=== PATIENT | female | born 1975 | race Caucasian/White ===

== ENCOUNTER 2018-06-02 05:55 | Emergency (ER) | payer OTHER ==
[2018-06-02 07:00] VITALS: BP 104/72; PULSE 85; TEMP 98.5; BMI 22.4
--- NOTE | 2018-06-02 07:54 | PDOC ---
History of Present Illness - General History Source: Patient - History of Present Illness Occurred: reports: other Severity: reports: moderate Pain Location: reports: back <Shila Velásquez - Last Filed: 06/02/18 08:12> <Brenda Monge Kristan - Last Filed: 06/02/18 14:03> - General Chief Complaint: Back Pain Stated Complaint: LOWER BACK PAIN Time Seen by Provider: 06/02/18 07:43 Past History - Past Medical History COPD: No GI Disorders: Yes (GERD) - Suicide/Smoking/Psychosocial Hx Smoking History: Never smoked Hx Alcohol Use: No Drug/Substance Use Hx: No <Shila Velásquez - Last Filed: 06/02/18 08:12> <Brenda Monge - Last Filed: 06/02/18 14:03> - Past Medical History Allergies/Adverse Reactions: Allergies Allergy/AdvReac Type Severity Reaction Status Date / Time No Known Allergies Allergy Verified 05/05/18 07:11 Home Medications: Ambulatory Orders Ranitidine [Zantac -] 150 mg PO DAILY 06/02/18 Review of Systems - Review of Systems Constitutional: No: Fever Respiratory: No: Cough, Shortness of Breath Cardiac (ROS): No: Chest Pain, Palpitations Musculoskeletal: Yes: Back Pain <Shila Velásquez Last Filed: 06/02/18 08:12> *Physical Exam - Vital Signs Last Vital Signs Temp Pulse Resp BP Pulse Ox 98.5 F 85 104/72 99 06/02/18 06:22 06/02/18 06:22 06/02/18 06:22 06/02/18 06:22 - Physical Exam General Appearance: Yes: Appropriately Dressed. No: Apparent Distress HEENT: positive: Normal Voice Neck: positive: Supple Respiratory/Chest: positive: Lungs Clear, Normal Breath Sounds. negative: Respiratory Distress Cardiovascular: positive: Regular Rate, S1, S2 Musculoskeletal: negative: CVA Tenderness, Vertebral Tenderness Extremity: positive: Normal Inspection Integumentary: positive: Dry, Warm Neurologic: positive: Fully Oriented, Alert, Normal Mood/Affect <Shila Velásquez Last Filed: 06/02/18 08:12> - Vital Signs Last Vital Signs Temp Pulse Resp BP Pulse Ox 98.5 F 85 104/72 99 06/02/18 06:22 06/02/18 06:22 06/02/18 06:22 06/02/18 06:22 <Brenda Monge - Last Filed: 06/02/18 14:03> ED Treatment Course - Medications Given in the ED: ED Medications Discontinued Medications Generic Name Dose Route Start Last Admin Trade Name Derrick PRN Reason Stop Dose Admin Acetaminophen 650 mg 06/02/18 07:51 06/02/18 08:15 Tylenol - PO 06/02/18 07:52 Not Given ONCE ONE <Brenda Monge - Last Filed: 06/02/18 14:03> Medical Decision Making - Medical Decision Making 06/02/18 08:10 43-year-old female, denies any past medical history, here with back pain. Patient states she developed mid back pain after lifting heavy garbage 3 days ago. Unable to describe pain, non-radiating, 8 out of 10 and worse with movement. For unclear reasons, has not taken anything for pain. No chest pain , shortness of breath or palpitations. No RF for DVT/PE See exam Back pain in setting of heavy lifting Suspect m/l MSK No red flags at this time -dc w/ pain control and pmd f/u as needed <Shila Velásquez - Last Filed: 06/02/18 08:12> - Medical Decision Making The patient was seen and evaluated in conjunction with midlevel provider under my direct supervision, ancillary studies were reviewed. I agree with the plan as outlined by OMAR Velásquez. did not have direct encounter with patient, reviewed the note 06/02/18 14:02 <Brenda Monge - Last Filed: 06/02/18 14:03> *DC/Admit/Observation/Transfer <Shila Velásquez - Last Filed: 06/02/18 08:12> <Brenda Monge - Last Filed: 06/02/18 14:03> Diagnosis at time of Disposition: Back pain Qualifiers: Back pain location: thoracic back pain Chronicity: acute Back pain laterality: bilateral Qualified Code(s): M54.6 - Pain in thoracic spine - Discharge Dispostion Disposition: HOME Condition at time of disposition: Stable - Patient Instructions Printed Discharge Instructions: Thoracic Back Pain Additional Instructions: La causa de hardy dolor de espalda es muy probablemente musculoesqueltica. Mya tipo de dolor puede durar desde varios bright hasta dominique semana o dos antes de que mejore. [place] Tylenol o Tylenol extra indio sin receta, segn sea necesario. Si el dolor persiste despus de 2 semanas, maria elena un seguimiento con hardy mdico de cabecera Print Language: POLISH
[2018-06-02] MEDS ORDERED: ACETAMINOPHEN 325 MG TABLET (FP) ONE ×2 (07:59→08:09)
[2018-06-02] MEDS: ACETAMINOPHEN 325 MG TABLET (FP) PO ONE ×2 (08:02→08:15)
== END 2018-06-02 08:17 | disposition home or self-care (01) ==
LOC: JER 05:55
DX: M54.6 Pain in thoracic spine (principal); X50.9XXA Other and unspecified overexertion or strenuous movements or postures, initial encounter; X50.0XXA Overexertion from strenuous movement or load, initial encounter; Y93.89 Activity, other specified; Y92.89 Other specified places as the place of occurrence of the external cause; Y99.8 Other external cause status
CPT/HCPCS: 99281-25

== ENCOUNTER 2018-06-25 08:58 | Day surgery (SDC) | payer OTHER ==
[2018-06-24 08:36] VITALS: BMI 22.1
[2018-06-25] MEDS ORDERED: TETRACAINE/BENZOCAINE/BUTAMBEN 20 GM SPR TP ONE (10:28)
[2018-06-25 11:01] VITALS: TEMP 97.5
[2018-06-25 12:26] VITALS: BP 119/79; PULSE 69
--- NOTE | 2018-06-27 13:39 | PATH ---
Surgical Pathology Report Patient Name: JEWELS JARVIS [facility]. Rec. #: [id number] /Age/Gender: 1975 (Age: 43) / F Account: [id number] Location: ASU-ENDOSCOPY Taken: 06/25/2018 Received: 06/25/2018 Reported: 06/27/2018 Physicians: Thanh Hammond D.O. Specimen(s) Received A: BX DUODENUM B: BX PYLORUS C: BX BODY AND ANGULARIS D: BX GE JUNCTION POLYP Clinical History Dyspepsia Postoperative diagnosis: EG junction polyp, gastritis Final Diagnosis A. DUODENUM, BIOPSY: DUODENAL MUCOSA WITHOUT SIGNIFICANT PATHOLOGIC FINDINGS. B. STOMACH, PYLORUS, BIOPSY: GASTRIC MUCOSA WITH MODERATE CHRONIC GASTRITIS AND INTESTINAL METAPLASIA. IMMUNOHISTOCHEMICAL STAIN FOR H. PYLORI IS NEGATIVE. C. STOMACH, ANGULARIS AND BODY, BIOPSY: GASTRIC BODY MUCOSA WITH MILD CHRONIC GASTRITIS. IMMUNOHISTOCHEMICAL STAIN FOR H. PYLORI IS NEGATIVE. D. GE JUNCTION, BIOPSY: POLYPOID SQUAMOCOLUMNAR MUCOSA WITH MODERATE ACUTE AND CHRONIC INFLAMMATION AND CHANGES OF MILD REFLUX ESOPHAGITIS. NO INTESTINAL METAPLASIA OR DYSPLASIA IDENTIFIED. IMMUNOHISTOCHEMICAL STAIN FOR H. PYLORI IS NEGATIVE. Electronically Signed Margret Wood M.D. Gross Description A. Received in formalin, labeled "biopsy duodenum" are 3 olivera, irregular portions of soft tissue ranging from 0.2-0.3 cm. in greatest dimension. The specimens are submitted in toto in one cassette. B. Received in formalin, labeled "biopsy pylorus" are 2 olivera, irregular portions of soft tissue measuring 0.2 and 0.4 cm. in greatest dimension. The specimens are submitted in toto in one cassette. C. Received in formalin, labeled "biopsy angularis and body" are 3 olivera, irregular portions of soft tissue ranging from 0.1-0.3 cm. in greatest dimension. The specimens are submitted in toto in one cassette. D. Received in formalin, labeled "biopsy EG junction" are 5 olivera, irregular portions of soft tissue ranging from 0.3-0.5 cm. in greatest dimension. The specimens are submitted in toto in one cassette. 06/25/2018 saudi06/25/2018
== END 2018-06-25 12:25 | disposition home or self-care (01) ==
LOC: JASU-ENDO 08:58
PROVIDERS: ATTEND Internal Medicine Gastroenterology
PROC: 0DB68ZX Excision of Stomach, Via Natural or Artificial Opening Endoscopic, Diagnostic (ICD-10-PCS; 2018-06-25)
PROC: 0DB48ZX Excision of Esophagogastric Junction, Via Natural or Artificial Opening Endoscopic, Diagnostic (ICD-10-PCS; 2018-06-25)
PROC: 0DB98ZX Excision of Duodenum, Via Natural or Artificial Opening Endoscopic, Diagnostic (ICD-10-PCS; principal; 2018-06-25 11:30)
DX: K31.7 Polyp of stomach and duodenum (principal); K29.70 Gastritis, unspecified, without bleeding
CPT/HCPCS: 84703

== ENCOUNTER 2018-07-02 08:09 | Day surgery (SDC) | payer OTHER ==
[2018-07-02 09:05] VITALS: BMI 22.1
[2018-07-02 10:18] VITALS: TEMP 98.4
[2018-07-02 10:56] VITALS: BP 105/69; PULSE 62
== END 2018-07-02 10:57 | disposition home or self-care (01) ==
LOC: JASU-ENDO 08:09
PROVIDERS: ATTEND Internal Medicine Gastroenterology
PROC: 0DJD8ZZ Inspection of Lower Intestinal Tract, Via Natural or Artificial Opening Endoscopic (ICD-10-PCS; principal; 2018-07-02 09:15)
DX: R10.9 Unspecified abdominal pain (principal); K64.8 Other hemorrhoids

== ENCOUNTER 2018-09-21 04:58 | Emergency (ER) | payer OTHER ==
[2018-09-21 05:24] VITALS: TEMP 97.6; BMI 20.2
--- NOTE | 2018-09-21 05:41 | PDOC ---
History of Present Illness - General Chief Complaint: Nausea/Vomiting Stated Complaint: VOMITING/7WKS History Source: Patient Exam Limitations: No Limitations - History of Present Illness Initial Comments: 09/21/18 06:27 43 yo F estimated GA of 7 weeks based on LMP 07/23/2018 with no past medical hx presents to the emergency department with N/V with associative epigastric and suprapubic pain. Per the patient, she began having N/V episodes 2 days ago with 10+ episodes per day with a small streak of blood at the end of the streaks. Per the patient, she developed abdominal pain last night that is cramping in nature, 10/10, located in the epigastric and periumbilical region without radiation. She denies the following: fever, chills, dysuria, hematuria, diarrhea, chest pain, SOB, trauma, and vaginal bleeding/discharge. She states she never had these intense and prolonged nausea and vomiting in her previous two pregnancies. Shx: C/S Meds: ranitidine Allergies: NKDA Social: Denies tobacco, alcohol, and substance abuse. Past History - Past Medical History Allergies/Adverse Reactions: Allergies Allergy/AdvReac Type Severity Reaction Status Date / Time No Known Allergies Allergy Verified 09/21/18 05:21 Home Medications: Ambulatory Orders Ranitidine [Zantac -] 150 mg PO DAILY 06/02/18 Cholecalciferol (Vitamin D3) [Vitamin D -] 400 unit PO DAILY 07/02/18 Doxylamine Succinate/Vit B6 [Lorrie Sykes 10-10 mg Tablet] 1 each PO HS PRN #14 tablet. 09/21/18 COPD: No GI Disorders: Yes (GERD,GASTRITIS) Disorders: Yes (UTI 05/14) - Surgical History Cholecystectomy: Yes (LAPAROSCOPIC) - Suicide/Smoking/Psychosocial Hx Smoking History: Never smoked Have you smoked in the past 12 months: No Information on smoking cessation initiated: No Hx Alcohol Use: No Drug/Substance Use Hx: No Review of Systems - Review of Systems Able to Perform ROS?: Yes Is the patient limited Telugu proficient: No Constitutional: Yes: Weakness. No: Chills, Diaphoresis, Fever HEENTM: No: Recent change in vision, Ear Pain, Nose Pain, Throat Pain, Mouth Pain Respiratory: No: Shortness of Breath, SOB with Exertion Cardiac (ROS): No: Chest Pain, Lightheadedness, Palpitations, Syncope, Chest Tightness ABD/GI: Yes: Nausea, Poor Appetite, Poor Fluid Intake, Vomiting. No: Constipated, Diarrhea, Rectal Bleeding, Tarry Stools : No: Burning, Dysuria, Hematuria, Urgency Musculoskeletal: No: Back Pain, Joint Pain, Neck Pain Integumentary: No: Bruising, Erythema, Pruritus, Rash Neurological: No: Headache, Numbness, Tingling, Tremors, Ataxia, Dizziness Psychiatric: No: Change in Appetite Endocrine: No: Unexplained Weight Gain Hematologic/Lymphatic: No: Anemia *Physical Exam - Vital Signs Last Vital Signs Temp Pulse Resp BP Pulse Ox 97.6 F 97 H 18 101/70 99 09/21/18 05:22 09/21/18 05:22 09/21/18 05:22 09/21/18 05:09/21/18 05:22 - Physical Exam General Appearance: Yes: Nourished, Appropriately Dressed. No: Apparent Distress, Intoxicated HEENT: positive: EOMI, BILL, Normal Voice, Pharynx Normal, Hearing Grossly Normal. negative: Pale Conjunctivae, Scleral Icterus (R), Scleral Icterus (L), Muffled/Hoarse voice, Pharyngeal Erythema, Tonsillar Exudate, Tonsillar Erythema , Excessive drooling Neck: positive: Trachea midline, Supple. negative: Tender Respiratory/Chest: positive: Lungs Clear, Normal Breath Sounds. negative: Chest Tender, Respiratory Distress, Accessory Muscle Use, Crackles, Rales, Rhonchi, Stridor, Wheezing Cardiovascular: positive: Regular Rhythm, Regular Rate, S1, S2. negative: Systolic Murmur Gastrointestinal/Abdominal: positive: Tender (epigastric and periumbilical region. Negative for RLQ, LLQ, and suprapubic region), Flat, Soft, Increased Bowel Sounds. negative: Normal Bowel Sounds, Rebound, Hernia Lymphatic: negative: Adenopathy Musculoskeletal: positive: Normal Inspection. negative: CVA Tenderness, Vertebral Tenderness Extremity: positive: Normal Capillary Refill, Normal Inspection, Normal Range of Motion. negative: Tender Integumentary: positive: Normal Color, Dry, Warm. negative: Rash, Swelling Neurologic: positive: Fully Oriented, Alert, Normal Mood/Affect, Normal Response Moderate Sedation - Procedure Monitoring Vital Signs: Procedure Monitoring Vital Signs Temperature 97.6 F 09/21/18 05:22 Pulse Rate 97 H 09/21/18 05:22 Respiratory Rate 18 09/21/18 05:22 Blood Pressure 101/70 09/21/18 05:22 O2 Sat by Pulse Oximetry (%) 99 09/21/18 05:22 ED Treatment Course - LABORATORY CBC & Chemistry Diagram: 09/21/18 06:21 09/21/18 06:21 Medical Decision Making - Medical Decision Making 09/21/18 06:37 43 yo F estimated GA of 7 weeks based on LMP 07/23/2018 with no past medical hx presents to the emergency department with N/V with associative epigastric and suprapubic pain. Initial vitals: Initial Vital Signs Temp Pulse Resp BP Pulse Ox 97.6 F 97 H 18 101/70 99 09/21/18 05:22 09/21/18 05:22 09/21/18 05:22 09/21/18 05:22 09/21/18 05:22 Work up: ddx: viral gastroenteritis vs hyperemesis gravidarum vs orders: bhcg quant, TS, cbc, cmp, UA, urine tox Interventions: famotidine, NS, reglan Patient signed out to Dr. Loomis *DC/Admit/Observation/Transfer Diagnosis at time of Disposition: Vomiting during - Prescriptions Prescriptions: Doxylamine Succinate/Vit B6 [Lorrie Sykes 10-10 mg Tablet] 1 each PO HS PRN #14 tablet.dr GRAY Reason: Nausea And/Or Vomiting - Referrals Referrals: Jt Bronson MD [Staff Physician] - - Patient Instructions Printed Discharge Instructions: DI for Hyperemesis Gravidarum, DI for Vomiting -- Adult Additional Instructions: Discharge Instructions: - You were seen in the emergency department with vomiting and abdominal pain. You had blood tests and a urine test, which were normal. - You were given an acid professor of fine art, nausea medication, and some IV fluids for your symptoms. - Vomiting during early is common, but it usually resolves as your progresses. While you have these symptoms, it is important to make sure you are staying hydrated with plenty of fluids. You will probably be able to tolerate eating more easily if you have small, frequent meals and snacks throughout the day. Try eating something as soon as you get up. - For the next few days (until you feel better), do not worry about eating as long as you stay hydrated. It is OK if you do not eat for a day or so. When you feel ready to eat again, avoid spicy or greasy foods. - You have been prescribed a medication to take at home (2 tablets at night) to help prevent nausea and vomiting. It contains 2 medicines, doxylamine and pyroxidine (vitamin B6). If the prescription is expensive, you can buy the two medicines separately on the shelf. You can take doxylamine (brand name Unisom) 1 /2 tablet at bedtime. You can also find pryoxidine, or vitamin B6, in the vitamin section of your pharmacy. Take 25mg tablets up to 3 times daily as needed. - Follow up with an salesperson terrazzo tiles, especially if your symptoms do not improve. You have been referred to Dr Medel. - Seek immediate medical care if your symptoms worsen significantly, if you are unable to eat or drink anything at all, you become dehydrated (feel dry, lightheaded, stop urinating), or if you have any medical emergency. Instrucciones de descarga: - Usted fue atendido en el servicio de urgencias con vmitos y dolor abdominal. Le hicieron anlisis de charanjit y un anlisis de orina, que fueron normales. - Le administraron un reductor de cido, medicamentos para las nuseas y algunos lquidos intravenosos para santos sntomas. - El vmito jayda el embarazo temprano es comn, rosalina generalmente se resuelve a medida que avanza hardy embarazo. Mientras tenga estos sntomas, es importante asegurarse de mantenerse hidratado con muchos lquidos. Es probable que pueda tolerar comer ms fcilmente si tiene comidas y refrigerios pequeos y frecuentes jayda todo el da. Intenta comer algo olivera pronto mariah te levantes. - Jayda los prximos bright (hasta que se sienta mejor), no se preocupe por comer mientras se mantenga hidratado. Est alessia si no comes jayda un da ms o menos. Cuando se sienta listo para comer nuevamente, evite los alimentos picantes o grasientos - Se le randall recetado un medicamento para amee en casa (2 tabletas por la noche) para ayudar a prevenir las nuseas y los vmitos. Contiene 2 medicamentos, doxilamina y piroxidina (vitamina B6). Si la receta es costosa, puede comprar los dos medicamentos por separado en el estante. Puede amee doxilamina (caroline Unisom) 1/2 tableta a la hora de acostarse. Tambin puede encontrar pryoxidine, o vitamina B6, en la seccin de vitaminas de hardy farmacia. [place] tabletas de 25 mg hasta 3 veces al da, segn sea necesario. - Lay un seguimiento con un obstetra, especialmente si santos sntomas no mejoran. Usted randall sido referido al Dr. Medel. - Busque atencin mdica inmediata si santos sntomas empeoran significativamente, si no puede comer ni beber nada, se deshidrata (se siente seco, mareado, fatuma de orinar) o si tiene alguna emergencia mdica. Print Language: IRANIAN - Post Discharge Activity
--- NOTE | 2018-09-21 06:07 | PDOC ---
Attending Attestation - Resident Resident Name: ChayaWes - ED Attending Attestation I have performed the following: I have examined & evaluated the patient, The case was reviewed & discussed with the resident, I agree w/resident's findings & plan - HPI HPI: 09/21/18 20:02 Pt states that she is approx 7 weeks and that she has abd pain and vomiting and nausea. Hyperemesis of . No fever and no chills. - Physicial Exam PE: 09/21/18 20:03 Agree with resident exam. - Medical Decision Making 09/21/18 20:03 Pt had all labs drawn off and she will be hydrated. She was signed out to the day team and she will be sent home with firefighting equipment specialist follow up as needed. 09/21/18 20:05 Blood type was sent, as pt doesn't have one on file.
[2018-09-21] MEDS ORDERED: METOCLOPRAMIDE HCL INJECTION 10 MG/2 ML VIAL IVPUSH ONE (06:19)
[2018-09-21] MEDS ORDERED: FAMOTIDINE 20 MG/50 ML IVPB 20 MG/50 ML MG IVPB ONE ×2 (06:19→06:39)
[2018-09-21] MEDS ORDERED: SODIUM CHLORIDE 0.9% 500 ML INFUS.BAG IV ONE (06:19)
[2018-09-21 06:38] VITALS: BP 112/73; PULSE 74
[2018-09-21] MEDS ORDERED: METOCLOPRAMIDE HCL INJECTION 10 MG/2 ML VIAL ONE (06:39)
[2018-09-21 07:17] LABS: ALBUMIN 3.6 g/dl (3.4-5.0); ALK PHOS 75 U/L (45-117); ANION GAP 9 MMOL/L (8-16); BILIRUBIN,TOTAL 0.6 mg/dL (0.2-1); BLOOD UREA NITROGEN 8 mg/dL (7-18); CALCIUM 8.4 mg/dL (8.5-10.1); CHLORIDE 104 mmol/L (98-107); CO2 23 mmol/L (21-32); CREATININE 0.5 mg/dL (0.55-1.3); GLUCOSE,RANDOM 86 mg/dL (74-106); SGOT/AST 22 U/L (15-37); SGPT/ALT 23 U/L (13-61); SODIUM 136 mmol/L (136-145)
--- NOTE | 2018-09-21 07:18 | PDOC ---
*Physical Exam - Vital Signs Last Vital Signs Temp Pulse Resp BP Pulse Ox 97.6 F 74 16 112/73 99 09/21/18 05:22 09/21/18 06:36 09/21/18 06:36 09/21/18 06:36 09/21/18 06:36 ED Treatment Course - LABORATORY CBC & Chemistry Diagram: 09/21/18 06:21 09/21/18 06:21 - ADDITIONAL ORDERS Additional order review: Laboratory Results 09/21/18 06:21 Sodium 136 Potassium 4.0 Chloride 104 Carbon Dioxide 23 Anion Gap 9 BUN 8 Creatinine 0.5 L Creat Clearance w eGFR > 60 Random Glucose 86 Calcium 8.4 L Total Bilirubin 0.6 AST 22 ALT 23 Alkaline Phosphatase 75 Total Protein 7.0 Albumin 3.6 - Medications Given in the ED: ED Medications Discontinued Medications Generic Name Dose Route Start Last Admin Trade Name Freq PRN Reason Stop Dose Admin Famotidine/Sodium Chloride 20 mg in 50 mls @ 100 mls/hr 09/21/18 06:19 06:45 Pepcid 20 Mg Premixed Ivpb - IVPB 09/21/18 06:48 100 mls/hr ONCE ONE Administration Metoclopramide HCl 10 mg 09/21/18 06:19 09/21/18 06:45 Reglan Injection - IVPUSH 09/21/18 06:20 10 mg ONCE ONE Administration Sodium Chloride 1,000 ml 09/21/18 06:19 09/21/18 06:38 Normal Saline - IV 09/21/18 06:20 1,000 ml ONCE ONE Administration Medical Decision Making - Medical Decision Making 09/21/18 07:19 Mary Harris is a 43yo otherwise healthy woman currently at 7wks gestation by LMP who presented to the ED overnight with multiple episodes of vomiting (10 or more per day) as well as epigastric abdominal and suprapubic pain since yesterday. - Concern for hyperemesis, ddx includes viral/bacterial gastritis, cholecystitis. Given age, no comorbidities, no chest pain or SOB cardiac causes of vomiting are very unlikely - No dysuria, hematuria, vaginal symptoms but UA ordered to r/o - CBC, chemistry, serum sent, currently pending - Given pepcid, reglan, NS in ED with some improvement in her symptoms - not vomiting, but continued abd pain 09/21/18 07:35 - Chemistry reviewed, no electrolyte abnormalities or other concerns - CBC pending, serum preg pending, UA to be sent 09/21/18 09:09 - Maalox ordered for continued left upper abdominal pain - CBC unremarkable. bHCG pending to confirm - Pt requested to provide urine sample for UA 09/21/18 10:28 - bHCG [id number], c/w estimated gestational age - UA w/ trace ketones, likely due to mild dehydration from emesis. Already received 1L NS - PO challenge given no episodes of vomiting in ED. Given juice and crackers. - Following discussion with Dr Ceja, added lipase to rule out pancreatitis given continued pain. 09/21/18 11:35 - Pt reports not having OB coverage due to insurance difficulties - US ordered to verify intrauterine - Once US completed, will d/c home as she was able to tolerate PO. 09/21/18 12:59 - US completed. Shows IUP, 11w0d gestation, FHR 152. Radiology report notes small subchorionic hemorrhage - Will refer to OB for follow up Discussed with Dr Ceja. Terese Loomis PGY1 *DC/Admit/Observation/Transfer Diagnosis at time of Disposition: Vomiting during - Referrals Referrals: Jt Bronson MD [Staff Physician] - - Patient Instructions Printed Discharge Instructions: DI for Hyperemesis Gravidarum, DI for Vomiting -- Adult Additional Instructions: Discharge Instructions: - You were seen in the emergency department with vomiting and abdominal pain. You had blood tests and a urine test, which were normal. - You were given an acid installations inspector, nausea medication, and some IV fluids for your symptoms. - Vomiting during early is common, but it usually resolves as your progresses. While you have these symptoms, it is important to make sure you are staying hydrated with plenty of fluids. You will probably be able to tolerate eating more easily if you have small, frequent meals and snacks throughout the day. Try eating something as soon as you get up. - For the next few days (until you feel better), do not worry about eating as long as you stay hydrated. It is OK if you do not eat for a day or so. When you feel ready to eat again, avoid spicy or greasy foods. - You have been prescribed a medication to take at home (2 tablets at night) to help prevent nausea and vomiting. It contains 2 medicines, doxylamine and pyroxidine (vitamin B6). If the prescription is expensive, you can buy the two medicines separately on the shelf. You can take doxylamine (brand name Unisom) 1 /2 tablet at bedtime. You can also find pryoxidine, or vitamin B6, in the vitamin section of your pharmacy. Take 25mg tablets up to 3 times daily as needed. - Follow up with an home health clinician, especially if your symptoms do not improve. You have been referred to Dr Medel. - Seek immediate medical care if your symptoms worsen significantly, if you are unable to eat or drink anything at all, you become dehydrated (feel dry, lightheaded, stop urinating), or if you have any medical emergency. Instrucciones de descarga: - Usted fue atendido en el servicio de urgencias con vmitos y dolor abdominal. Le hicieron anlisis de charanjit y un anlisis de orina, que fueron normales. - Le administraron un reductor de cido, medicamentos para las nuseas y algunos lquidos intravenosos para santos sntomas. - El vmito jayda el embarazo temprano es comn, rosalina generalmente se resuelve a medida que avanza hardy embarazo. Mientras tenga estos sntomas, es importante asegurarse de mantenerse hidratado con muchos lquidos. Es probable que pueda tolerar comer ms fcilmente si tiene comidas y refrigerios pequeos y frecuentes jayda todo el da. Intenta comer algo olivera pronto mariah te levantes. - Jayda los prximos bright (hasta que se sienta mejor), no se preocupe por comer mientras se mantenga hidratado. Est alessia si no comes jayda un da ms o menos. Cuando se sienta listo para comer nuevamente, evite los alimentos picantes o grasientos - Se le randall recetado un medicamento para amee en casa (2 tabletas por la noche) para ayudar a prevenir las nuseas y los vmitos. Contiene 2 medicamentos, doxilamina y piroxidina (vitamina B6). Si la receta es costosa, puede comprar los dos medicamentos por separado en el estante. Puede amee doxilamina (caroline Unisom) 1/2 tableta a la hora de acostarse. Tambin puede encontrar pryoxidine, o vitamina B6, en la seccin de vitaminas de hardy farmacia. [place] tabletas de 25 mg hasta 3 veces al da, segn sea necesario. - Lay un seguimiento con un obstetra, especialmente si santos sntomas no mejoran. Usted randall sido referido al Dr. Medel. - Busque atencin mdica inmediata si santos sntomas empeoran significativamente, si no puede comer ni beber nada, se deshidrata (se siente seco, mareado, fatuma de orinar) o si tiene alguna emergencia mdica. Print Language: MALTESE - Post Discharge Activity
[2018-09-21 07:56] LABS: BASO % 0.3 % (0-2.0); EOS % 0.3 % (0-4.5); HEMATOCRIT 36.9 % (32.4-45.2); HEMOGLOBIN 13.2 GM/dL (10.7-15.3); LYMPH % 4.6 % (8-40); MCHC 35.7 g/dl (32.0-36.0); MEAN CELL VOLUME 86.8 fl (80-96); MEAN PLT VOLUME 8.9 fl (7.5-11.1); MONO % 4.1 % (3.8-10.2); NEUT % 90.7 % (42.8-82.8); PLATELET COUNT 207 K/MM3 (134-434); RBC 4.25 M/mm3 (3.60-5.2); RDW 14.1 % (11.6-15.6); WHITE BLOOD COUNT 11.1 K/mm3 (4.0-10.0)
[2018-09-21] MEDS ORDERED: MAG HYDROX/AL HYDROX/SIMETH 30 ML UNIT-DOSE CUP PO ONE (09:09)
[2018-09-21 09:34] LABS: URINE APPEARANCE CLEAR; URINE BILIRUBIN NEGATIVE (<2.0 mg/dL); URINE COLOR LTYELLOW; URINE GLUCOSE (UA) NEGATIVE (NEGATIVE); URINE KETONE TRACE (NEGATIVE); URINE LEUK ESTERASE NEGATIVE (NEGATIVE); URINE NITRITE NEGATIVE (NEGATIVE); URINE PROTEIN NEGATIVE (NEGATIVE); URINE UROBILINOGEN NEGATIVE mg/dL (0.2-1.0)
[2018-09-21] MEDS ORDERED: MAG HYDROX/AL HYDROX/SIMETH 30 ML UNIT-DOSE CUP ONE (09:37)
[2018-09-21 11:29] LABS: LIPASE 133 U/L (73-393)
--- NOTE | 2018-09-21 11:39 | PDOC ---
*Physical Exam - Vital Signs Last Vital Signs Temp Pulse Resp BP Pulse Ox 97.6 F 74 16 112/73 99 09/21/18 05:22 09/21/18 06:36 09/21/18 06:36 09/21/18 06:36 09/21/18 06:36 ED Treatment Course - LABORATORY CBC & Chemistry Diagram: 09/21/18 06:21 09/21/18 06:21 - ADDITIONAL ORDERS Additional order review: Laboratory Results 09/21/18 09/21/18 09/21/18 09:20 06:21 06:21 Sodium 136 Potassium 4.0 Chloride 104 Carbon Dioxide 23 Anion Gap 9 BUN 8 Creatinine 0.5 L Creat Clearance w eGFR > 60 Random Glucose 86 Calcium 8.4 L Total Bilirubin 0.6 AST 22 ALT 23 Alkaline Phosphatase 75 Total Protein 7.0 Albumin 3.6 Lipase 133 Beta HCG, Quant 27400.4 Urine Color Ltyellow Urine Appearance Clear Urine pH 6.0 Ur Specific [place] 1.009 L Urine Protein Negative Urine Glucose (UA) Negative Urine Ketones Trace H Urine Blood Negative Urine Nitrite Negative Urine Bilirubin Negative Urine Urobilinogen Negative Ur Leukocyte Esterase Negative Blood Type O POSITIVE Antibody Screen Negative 09/21/18 06:15 Sodium Potassium Chloride Carbon Dioxide Anion Gap BUN Creatinine Creat Clearance w eGFR Random Glucose Calcium Total Bilirubin AST ALT Alkaline Phosphatase Total Protein Albumin Lipase Beta HCG, Quant Urine Color Urine Appearance Urine pH Ur Specific [place] Urine Protein Urine Glucose (UA) Urine Ketones Urine Blood Urine Nitrite Urine Bilirubin Urine Urobilinogen Ur Leukocyte Esterase Blood Type O POSITIVE Antibody Screen Negative 09/21/18 06:21 RBC 4.25 MCV 86.8 MCHC 35.7 RDW 14.1 MPV 8.9 Neutrophils % 90.7 H Lymphocytes % 4.6 L D Monocytes % 4.1 Eosinophils % 0.3 D Basophils % 0.3 - RADIOLOGY Radiology Studies Ordered: Category Date Time Status <14WKS US [US] Stat Ultrasound 09/21/18 11:27 Ordered - Medications Given in the ED: ED Medications Discontinued Medications Generic Name Dose Route Start Last Admin Trade Name Freq PRN Reason Stop Dose Admin Al Hydroxide/Mg Hydroxide 30 ml 09/21/18 09:09 09/21/18 09:39 Mylanta Oral Suspension - PO 09/21/18 09:10 30 ml ONCE ONE Administration Famotidine/Sodium Chloride 20 mg in 50 mls @ 100 mls/hr 09/21/18 06:19 06:45 Pepcid 20 Mg Premixed Ivpb - IVPB 09/21/18 06:48 100 mls/hr ONCE ONE Administration Metoclopramide HCl 10 mg 09/21/18 06:19 09/21/18 06:45 Reglan Injection - IVPUSH 09/21/18 06:20 10 mg ONCE ONE Administration Sodium Chloride 1,000 ml 09/21/18 06:19 09/21/18 06:38 Normal Saline - IV 09/21/18 06:20 1,000 ml ONCE ONE Administration Medical Decision Making - Medical Decision Making 09/21/18 11:32 pt signed out from evening team. 43y F presenting with intermittent crampy abd pain and nbnb vomiting since yesterday morning without associated diarrhea, melena, bpr, fever/chills, vaginal bleeding. No recent travel, sick contacts, recent abx use. no cp, sob. on exam pt well appearing no distress - abd soft nontender, hyperactive bowel sounds, no rebound/guarding suspect enteritis labs reviewed, unremarkable will ck abd us to confirm IUP 09/21/18 13:32 US reviewed cw IUP with FHR pt feling improved tolerating oral intake abd soft nontender on repeat exam will dc with pmd fu return precuautions were discussed *DC/Admit/Observation/Transfer Diagnosis at time of Disposition: Vomiting during - Discharge Dispostion Disposition: HOME - Prescriptions Prescriptions: Doxylamine Succinate/Vit B6 [Lorrie Sykes 10-10 mg Tablet] 1 each PO HS PRN #14 tablet. PRN Reason: Nausea And/Or Vomiting - Referrals Referrals: Jt Bronson MD [Staff Physician] - - Patient Instructions Printed Discharge Instructions: DI for Hyperemesis Gravidarum, DI for Vomiting -- Adult Additional Instructions: Discharge Instructions: - You were seen in the emergency department with vomiting and abdominal pain. You had blood tests and a urine test, which were normal. - You were given an acid motion picture director, nausea medication, and some IV fluids for your symptoms. - Vomiting during early is common, but it usually resolves as your progresses. While you have these symptoms, it is important to make sure you are staying hydrated with plenty of fluids. You will probably be able to tolerate eating more easily if you have small, frequent meals and snacks throughout the day. Try eating something as soon as you get up. - For the next few days (until you feel better), do not worry about eating as long as you stay hydrated. It is OK if you do not eat for a day or so. When you feel ready to eat again, avoid spicy or greasy foods. - You have been prescribed a medication to take at home (2 tablets at night) to help prevent nausea and vomiting. It contains 2 medicines, doxylamine and pyroxidine (vitamin B6). If the prescription is expensive, you can buy the two medicines separately on the shelf. You can take doxylamine (brand name Unisom) 1 /2 tablet at bedtime. You can also find pryoxidine, or vitamin B6, in the vitamin section of your pharmacy. Take 25mg tablets up to 3 times daily as needed. - Follow up with an air traffic supervisor, especially if your symptoms do not improve. You have been referred to Dr Medel. - Seek immediate medical care if your symptoms worsen significantly, if you are unable to eat or drink anything at all, you become dehydrated (feel dry, lightheaded, stop urinating), or if you have any medical emergency. Instrucciones de descarga: - Usted fue atendido en el servicio de urgencias con vmitos y dolor abdominal. Le hicieron anlisis de charanjit y un anlisis de orina, que fueron normales. - Le administraron un reductor de cido, medicamentos para las nuseas y algunos lquidos intravenosos para santos sntomas. - El vmito jayda el embarazo temprano es comn, rosalina generalmente se resuelve a medida que avanza hardy embarazo. Mientras tenga estos sntomas, es importante asegurarse de mantenerse hidratado con muchos lquidos. Es probable que pueda tolerar comer ms fcilmente si tiene comidas y refrigerios pequeos y frecuentes jayda todo el da. Intenta comer algo olivera pronto mariah te levantes. - Jayda los prximos bright (hasta que se sienta mejor), no se preocupe por comer mientras se mantenga hidratado. Est alessia si no comes jayda un da ms o menos. Cuando se sienta listo para comer nuevamente, evite los alimentos picantes o grasientos - Se le randall recetado un medicamento para amee en casa (2 tabletas por la noche) para ayudar a prevenir las nuseas y los vmitos. Contiene 2 medicamentos, doxilamina y piroxidina (vitamina B6). Si la receta es costosa, puede comprar los dos medicamentos por separado en el estante. Puede amee doxilamina (caroline Unisom) 1/2 tableta a la hora de acostarse. Millie puede encontrar pryoxidine, o vitamina B6, en la seccin de vitaminas de hardy farmacia. [place] tabletas de 25 mg hasta 3 veces al da, segn sea necesario. - Lay un seguimiento con un obstetra, especialmente si santos sntomas no mejoran. Usted randall sido referido al Dr. Medel. - Busque atencin mdica inmediata si santos sntomas empeoran significativamente, si no puede comer ni beber nada, se deshidrata (se siente seco, mareado, fatuma de orinar) o si tiene alguna emergencia mdica. Print Language: ROMANSH - Post Discharge Activity
[2018-09-21] MEDS ORDERED: morphine CARPU-JECT 2 MG/1 ML DISP.SYRIN IVPUSH ONE (11:50)
[2018-09-21] MEDS ORDERED: MORPHINE SULFATE 2 MG/ML VIAL ONE (12:05)
== END 2018-09-21 13:30 | disposition home or self-care (01) ==
LOC: JER 04:58
PROC: 3E033GC Introduction of Other Therapeutic Substance into Peripheral Vein, Percutaneous Approach (ICD-10-PCS; principal; 2018-09-21)
DX: O26.891 Other specified pregnancy related conditions, first trimester (principal); O21.0 Mild hyperemesis gravidarum; Z3A.01 Less than 8 weeks gestation of pregnancy
CPT/HCPCS: 36415; 76801-TC; 80053; 81003; 83690; 84702; 85025; 86850; 86900; 86901; 96365; 96375; 99284-25

== ENCOUNTER 2018-10-04 07:44 | Emergency (ER) | payer SELFPAY ==
--- NOTE | 2018-10-04 08:14 | PDOC ---
History of Present Illness - General Chief Complaint: Vaginal Bleeding Stated Complaint: BLEEDING Time Seen by Provider: 10/04/18 08:13 - History of Present Illness Initial Comments: 10/04/18 10:20 43 years old LMP unknown US on Sep 21 demonstrated positive IUP at approximately 11 weeks gestation presents to the ED with dysuria and hematuria Symptoms are moderate persistent constant no exacerbating or alleviating factors She has no associated back pain fever chills nausea vomiting diarrhea or abdominal discomfort no vaginal bleeding Past History - Past Medical History Allergies/Adverse Reactions: Allergies Allergy/AdvReac Type Severity Reaction Status Date / Time No Known Allergies Allergy Verified 10/04/18 07:46 Home Medications: Ambulatory Orders Doxylamine Succinate/Vit B6 [Lorrie Sykes 10-10 mg Tablet] 1 each PO HS PRN #14 tablet. 09/21/18 COPD: No GI Disorders: Yes (GERD,GASTRITIS) Disorders: Yes (UTI 05/14) - Surgical History Cholecystectomy: Yes (LAPAROSCOPIC) - Immunization History Immunization Up to Date: Yes - Suicide/Smoking/Psychosocial Hx Smoking History: Never smoked Have you smoked in the past 12 months: No Hx Alcohol Use: No Drug/Substance Use Hx: No *Physical Exam - Vital Signs Last Vital Signs Temp Pulse Resp BP Pulse Ox 98.1 F 85 18 109/62 99 10/04/18 07:47 10/04/18 07:47 10/04/18 07:47 10/04/18 07:47 10/04/18 07:47 - Physical Exam Comments: 10/04/18 11:01 Vitals: Triage Vital signs reviewed General Appearance: no acute distress, well nourished well developed, Head: Atraumatic, Neck: Supple;No Nucal rigidity Chest Wall: Nontender Cardiac: Regular rate and rhythym, no murmurs, no rubs, no gallops, Lungs: Clear to auscultation bilateral, good air movement bilaterally, Abdomen: Soft, non distended, normal bowel sounds, non tender to palpation Genitourinary: no cmt, no adnexal ttp Extremities: Full range of motion to all extremities, no cyanosis, clubbing, or edema Skin: Warm and dry, no rashes or lesions, no rash, no petechiae Psych: normal mood, normal affect Moderate Sedation - Procedure Monitoring Vital Signs: Procedure Monitoring Vital Signs Temperature 98.1 F 10/04/18 07:47 Pulse Rate 85 10/04/18 07:47 Respiratory Rate 18 10/04/18 07:47 Blood Pressure 109/62 10/04/18 07:47 O2 Sat by Pulse Oximetry (%) 99 10/04/18 07:47 ED Treatment Course - LABORATORY CBC & Chemistry Diagram: 10/04/18 08:50 10/04/18 08:50 Medical Decision Making - Medical Decision Making 10/04/18 11:02 Examination urinalysis consistent with cystitis. Patient is well-appearing afebrile no elevated white blood cell count no back pain no evidence of pyelonephritis We'll treat with 7 day course of Keflex Findings, need for follow-up and strict return instructions discussed patient. *DC/Admit/Observation/Transfer Diagnosis at time of Disposition: Cystitis - Discharge Dispostion Disposition: HOME Condition at time of disposition: Good Decision to Admit order: No - Referrals Referrals: Jesús Jensen MD [Staff Physician] - - Patient Instructions Printed Discharge Instructions: Acute Cystitis Additional Instructions: Drink plenty of fluids. Tylenol as directed on package. Take Keflex as prescribed Return to the emergency department immediately for any fever back pain nausea vomiting or for any concerns Follow up with Dr. Stewart or your obgyn within 1 week Elisabeth muchos lquidos. Tylenol mariah se indica en el paquete. amee Keflex mariah se prescribe regresar al Departamento de emergencias inmediatamente para cualquier dolor de espalda fiebre nuseas vmitos o para cualquier inquietud seguimiento con el Dr. STEWART o hardy Obgyn dentro de 1 semana - Post Discharge Activity
[2018-10-04 08:19] VITALS: BP 109/62; PULSE 85; TEMP 98.1; BMI 22.0
[2018-10-04 10:17] LABS: BASO % 0.3 % (0-2.0); EOS % 1.5 % (0-4.5); HEMATOCRIT 39.7 % (32.4-45.2); HEMOGLOBIN 14.1 GM/dL (10.7-15.3); LYMPH % 12.9 % (8-40); MCH 31.4 pg (25.7-33.7); MCHC 35.4 g/dl (32.0-36.0); MEAN CELL VOLUME 88.7 fl (80-96); MEAN PLT VOLUME 8.7 fl (7.5-11.1); MONO % 5.5 % (3.8-10.2); NEUT % 79.8 % (42.8-82.8); PLATELET COUNT 277 K/MM3 (134-434); RBC 4.48 M/mm3 (3.60-5.2); RDW 13.9 % (11.6-15.6); WHITE BLOOD COUNT 12.9 K/mm3 (4.0-10.0)
[2018-10-04 10:28] LABS: URINE APPEARANCE CLOUDY; URINE BILIRUBIN NEGATIVE (<2.0 mg/dL); URINE COLOR YELLOW; URINE GLUCOSE (UA) NEGATIVE (NEGATIVE); URINE KETONE NEGATIVE (NEGATIVE); URINE LEUK ESTERASE 3+ (NEGATIVE); URINE NITRITE NEGATIVE (NEGATIVE); URINE PROTEIN 2+ (NEGATIVE); URINE UROBILINOGEN NEGATIVE mg/dL (0.2-1.0)
[2018-10-04 10:33] LABS: URINE MUCUS FEW
[2018-10-04 11:44] LABS: ALBUMIN 3.6 g/dl (3.4-5.0); ALK PHOS 70 U/L (45-117); ANION GAP 9 MMOL/L (8-16); BILIRUBIN,TOTAL 0.4 mg/dL (0.2-1); BLOOD UREA NITROGEN 7 mg/dL (7-18); CALCIUM 9.1 mg/dL (8.5-10.1); CHLORIDE 103 mmol/L (98-107); CO2 24 mmol/L (21-32); CREATININE 0.5 mg/dL (0.55-1.3); GLUCOSE,RANDOM 60 mg/dL (74-106); POTASSIUM 3.7 mmol/L (3.5-5.1); SGOT/AST 16 U/L (15-37); SGPT/ALT 29 U/L (13-61); SODIUM 136 mmol/L (136-145); TOT PROT 7.5 g/dl (6.4-8.2)
== END 2018-10-04 11:36 | disposition home or self-care (01) ==
LOC: JER 07:44
DX: O26.891 Other specified pregnancy related conditions, first trimester (principal); O23.11 Infections of bladder in pregnancy, first trimester; N30.91 Cystitis, unspecified with hematuria; Z3A.13 13 weeks gestation of pregnancy
CPT/HCPCS: 36415; 80053; 81003; 81015; 84702; 85025; 86850; 86900; 86901; 87086; 87186; 99281-25

== ENCOUNTER 2018-11-24 18:39 | Emergency (ER) | payer OTHER ==
[2018-11-24 18:45] VITALS: BMI 22.6
--- NOTE | 2018-11-24 19:10 | PDOC ---
History of Present Illness - General Chief Complaint: Pain Stated Complaint: STOMACH PAIN Time Seen by Provider: 11/24/18 19:09 History Source: Patient, Authorization Rep Used Exam Limitations: Language Barrier - History of Present Illness Initial Comments: 43 yo F w a pmh of gastritis presents to the ER last night she ate some seafood and afterwords she ate chocolate ice cream and then today her belly was hurting a little bit in the morning but later on it got worse. She then experienced 6 episodes of diarrhea. The diarrhea was watery without any blood and the patient endorses significant amounts of flatus. She currently is experiencing on and off matthew-umbilical abdominal pain around every 20 minutes and it is occasionally associated with nausea. She denies any episodes of vomiting. 2 weeks ago she had fever and a headache for two days which she says she took tylenol and then felt better. She denies recent fevers, chills, or dysuria. LMP: Patient thinks end of June. LMP officially unknown. US on Sep 21 demonstrated positive IUP at approximately 11 weeks gestation PCP: Patient says she doesn't have one - per chart review she has seen - Jesús Jensen OB doc: Dr. Khalil PSH: Appendectomy, Social Hx: Denies smoking, drinking, or other substance usage Allergies: NKA, NKDA Past History - Past Medical History Allergies/Adverse Reactions: Allergies Allergy/AdvReac Type Severity Reaction Status Date / Time No Known Allergies Allergy Verified 11/24/18 18:44 Home Medications: Ambulatory Orders Acetaminophen [Tylenol 8 Hour] 650 mg PO TID #30 tablet.er 11/24/18 Calcium Carbonate [Tums] 200 mg PO DAILY #30 tab.chew 11/24/18 Mag Hydrox/Al Hydrox/Simeth [Mylanta Suspension -] 30 ml PO Q6H #1 bottle COPD: No GI Disorders: Yes (GERD,GASTRITIS) Disorders: Yes (UTI 05/14) - Surgical History Cholecystectomy: Yes (LAPAROSCOPIC) - Immunization History Immunization Up to Date: Yes - Suicide/Smoking/Psychosocial Hx Smoking History: Never smoked Have you smoked in the past 12 months: No Hx Alcohol Use: No Drug/Substance Use Hx: No Review of Systems - Review of Systems Able to Perform ROS?: Yes Comments:: CONSTITUTIONAL: Absent: fever, no chills, no fatigue EYES: Absent: visual changes ENT: Absent: ear pain, no sore throat CARDIOVASCULAR: Absent: chest pain, no palpitations RESPIRATORY: Absent: cough, no SOB GI: Present: abdominal pain, nausea, diarrhea Absent: no vomiting, no constipation GENITOURINARY: Present: Frequency Absent: dysuria, no hematuria MUSKULOSKELETAL: Absent: back pain, no arthralgia, no myalgia SKIN: Absent: rash NEURO: Absent: headache *Physical Exam - Vital Signs Last Vital Signs Temp Pulse Resp BP Pulse Ox 98.3 F 87 18 107/68 100 11/24/18 18:41 11/24/18 18:41 11/24/18 18:41 11/24/18 18:41 11/24/18 18:41 - Physical Exam Comments: GENERAL: Well-appearing, well-nourished. No apparent distress. HEENT: Normocephalic, atraumatic. PERRL, EOM intact. CARDIOVASCULAR: Normal S1, S2. Regular rate and rhythm. PULMONARY: No evidence of respiratory distress. Lungs clear to auscultation bilaterally. No wheezing, rales or rhonchi. ABDOMEN: Mild epigastric TTP. Soft, non-distended. EXTREMITIES: Normal ROM in all four extremities. No gross deformities. SKIN: Warm, dry. No rash NEUROLOGICAL: No focal neurological deficits. Procedures - Bedside Ultrasound Other: HR Remarks: Bedside US showed good movement of all 4 extremities and no obvious distress. HR of 131. ED Treatment Course - LABORATORY CBC & Chemistry Diagram: 11/24/18 20:09 11/24/18 20:09 Medical Decision Making - Medical Decision Making 43 yo F w a pmh of gastritis presents to the ER last night she ate some seafood and afterwords she ate chocolate ice cream and then today her belly was hurting a little bit in the morning but later on it got worse. She then experienced 6 episodes of diarrhea. The diarrhea was watery without any blood and the patient endorses significant amounts of flatus. She currently is experiencing on and off matthew-umbilical abdominal pain around every 20 minutes and it is occasionally associated with nausea. She denies any episodes of vomiting. 2 weeks ago she had fever and a headache for two days which she says she took tylenol and then felt better. She denies recent fevers, chills, or dysuria. LMP: Patient thinks end of June. LMP officially unknown. US on Sep 21 demonstrated positive IUP at approximately 11 weeks gestation VS: WNL Ddx IBNLT: Gastritis/GERD, pancreatitis, gastroenteritis, hyperemesis gravidarum , cholecystitis. Plan: Labs, Urine, EKG, GI cocktail, IV hydration, re-assess. Labs unremarkable other than mild hypoglycemia of 73 - will give patient juice at bedside. - Bedside US showed good movement and HR of 131 with no obvious distress. Patient feels much better after GI cocktail. Will DC w/ PCP and OB FU. *DC/Admit/Observation/Transfer Diagnosis at time of Disposition: Nausea, Diarrhea, Abdominal pain - Discharge Dispostion Disposition: HOME Condition at time of disposition: Improved Decision to Admit order: No - Prescriptions Prescriptions: Acetaminophen [Tylenol 8 Hour] 650 mg PO TID #30 tablet.er Mag Hydrox/Al Hydrox/Simeth [Mylanta Suspension -] 30 ml PO Q6H #1 bottle - Referrals Referrals: Josiane Ramirez MD [Staff Physician] - - Patient Instructions Printed Discharge Instructions: Diarrhea (Alternative Therapy), Gastroesophageal Reflux Disease (Alternative Therapy), Heartburn -- Overview, Diarrhea Additional Instructions: You came into the ER with nausea, diarrhea, and abdominal discomfort. We believe you might have experienced food poisoning. Please make sure to follow up with your OB doctor in the next 24 to 48 hours to make sure you are getting better, feeling better, and being taken care of. Come back to the ER if your pain worsens, you start vomiting, or have any other new or worsening concerns. Thank you for coming to the [facility]. We hope you feel better sooN! Print Language: BAHAMIAN - Post Discharge Activity
[2018-11-24] MEDS ORDERED: SODIUM CHLORIDE 1,000 ML IV STA (19:29)
[2018-11-24] MEDS ORDERED: ACETAMINOPHEN 1000 MG/100 ML VIAL (NON FORMULARY) IVPB ONE (19:29)
[2018-11-24] MEDS ORDERED: MAG HYDROX/AL HYDROX/SIMETH -MYLANTA- ORAL SUSPENSION PO ONE (19:30)
[2018-11-24] MEDS ORDERED: FAMOTIDINE 20 MG/50 ML IVPB 20 MG/50 ML MG IVPB ONE ×2 (19:31→19:46)
[2018-11-24] MEDS ORDERED: ACETAMINOPHEN INJECTION 100 ML IVPB ONE (19:45)
[2018-11-24] MEDS ORDERED: MAG HYDROX/AL HYDROX/SIMETH 30 ML UNIT-DOSE CUP ONE (19:45)
[2018-11-24 20:14] LABS: BASO % 0.6 % (0-2.0); EOS % 1.1 % (0-4.5); HEMATOCRIT 36.8 % (32.4-45.2); HEMOGLOBIN 12.7 GM/dL (10.7-15.3); LYMPH % 10.8 % (8-40); MCH 30.7 pg (25.7-33.7); MCHC 34.5 g/dl (32.0-36.0); MEAN CELL VOLUME 88.9 fl (80-96); MEAN PLT VOLUME 7.9 fl (7.5-11.1); MONO % 7.4 % (3.8-10.2); NEUT % 80.1 % (42.8-82.8); PLATELET COUNT 268 K/MM3 (134-434); RBC 4.14 M/mm3 (3.60-5.2); RDW 14.4 % (11.6-15.6); WHITE BLOOD COUNT 11.4 K/mm3 (4.0-10.0)
[2018-11-24 20:15] LABS: URINE APPEARANCE CLEAR; URINE BILIRUBIN NEGATIVE (NEGATIVE); URINE COLOR YELLOW; URINE GLUCOSE (UA) NEGATIVE (NEGATIVE); URINE KETONE NEGATIVE (NEGATIVE); URINE LEUK ESTERASE NEGATIVE (NEGATIVE); URINE NITRITE NEGATIVE (NEGATIVE); URINE PROTEIN NEGATIVE (NEGATIVE); URINE UROBILINOGEN 0.2 mg/dL (0.2-1.0)
[2018-11-24 20:37] LABS: ALBUMIN 2.9 g/dl (3.4-5.0); ALK PHOS 68 U/L (45-117); ANION GAP 8 MMOL/L (8-16); BILIRUBIN,TOTAL 0.3 mg/dL (0.2-1); BLOOD UREA NITROGEN 5 mg/dL (7-18); CALCIUM 8.4 mg/dL (8.5-10.1); CHLORIDE 105 mmol/L (98-107); CO2 23 mmol/L (21-32); CREATININE 0.4 mg/dL (0.55-1.3); GLUCOSE,RANDOM 73 mg/dL (74-106); LIPASE 126 U/L (73-393); POTASSIUM 3.7 mmol/L (3.5-5.1); SGOT/AST 17 U/L (15-37); SGPT/ALT 22 U/L (13-61); SODIUM 136 mmol/L (136-145); TOT PROT 6.7 g/dl (6.4-8.2)
--- NOTE | 2018-11-24 21:13 | PDOC ---
Attending Attestation - Resident Resident Name: Abelino Cosme - ED Attending Attestation I have performed the following: I have examined & evaluated the patient, The case was reviewed & discussed with the resident, I agree w/resident's findings & plan, Exceptions are as noted - HPI HPI: 11/24/18 21:12 43 yo female who is 21 weeks had eaten seafood last night and has had multiple episodes of diarrhea with nausea -no pelvic cramping.no vaginal bleeding - Physicial Exam PE: 11/24/18 21:13 slender 43 yo female who is approximately 21 weeks has c/o nausea , 6 episodes of watery diarrhea head ncat neck supple lungs cta b/l cvs [id number] abd mild epigastric tenderness,no rebound,no guarding,slightly protuberant skin warm and dry no cva tenderness neuro axox3, ambulatory,no gross focal neuro deficits psych appropriate - Medical Decision Making 11/24/18 21:16 bedside ultrasound sl iup with 131 heart beat 11/24/18 21:17 labs glu=73 and was given juice lfts normal imp gastorenteritis
[2018-11-24 21:48] VITALS: BP 110/70; PULSE 82; TEMP 98.2
--- NOTE | 2018-11-25 09:58 | EKG ---
Test Reason : Blood Pressure : / mmHG Vent. Rate : 079 BPM Atrial Rate : 079 BPM P-R Int : 128 ms QRS Dur : 086 ms QT Int : 388 ms P-R-T Axes : 063 060 037 degrees QTc Int : 444 ms NORMAL SINUS RHYTHM NORMAL ECG NO PREVIOUS ECGS AVAILABLE Confirmed by BELKIS JORDAN MD ([id number]) on 11/25/2018 9:58:08 AM Referred By: Confirmed By:BELKIS JORDAN MD
== END 2018-11-24 21:48 | disposition home or self-care (01) ==
LOC: JER 18:39
PROC: 3E0337Z Introduction of Electrolytic and Water Balance Substance into Peripheral Vein, Percutaneous Approach (ICD-10-PCS; principal; 2018-11-24)
PROC: 3E033GC Introduction of Other Therapeutic Substance into Peripheral Vein, Percutaneous Approach (ICD-10-PCS; 2018-11-24)
PROC: 3E033NZ Introduction of Analgesics, Hypnotics, Sedatives into Peripheral Vein, Percutaneous Approach (ICD-10-PCS; 2018-11-24)
PROC: BY4CZZZ Ultrasonography of Second Trimester, Single Fetus (ICD-10-PCS; 2018-11-24)
DX: O26.892 Other specified pregnancy related conditions, second trimester (principal); O99.612 Diseases of the digestive system complicating pregnancy, second trimester; K52.9 Noninfective gastroenteritis and colitis, unspecified; Z3A.21 21 weeks gestation of pregnancy
CPT/HCPCS: 36415; 76801-TC; 80053; 81003; 83690; 85025; 87086; 93005; 93010; 96361; 96365; 96375; 99283-25; J0131; J7030

== ENCOUNTER 2019-04-11 06:00 | Inpatient (IN) | payer OTHER ==
[2019-04-11] MEDS ORDERED: ELECTROLYTE-148 SOLN 500 ML IV ONE (07:00)
[2019-04-11] MEDS ORDERED: ONDANSETRON 4 MG/2 ML VIAL IVPUSH PRN (07:51)
[2019-04-11] MEDS ORDERED: morphine SULFATE/PF 0.5 MG/ML (2cc Syringe - QUVA) EP ONE (07:51)
[2019-04-11 07:52] VITALS: BMI 29.5
[2019-04-11] MEDS ORDERED: CITRIC ACID/SODIUM CITRATE 30 ML UNIT-DOSE CUP PO ONE (07:57)
[2019-04-11] MEDS ORDERED: ELECTROLYTE-148 SOLN 1,000 ML IV SCH (08:00)
[2019-04-11] MEDS ORDERED: ceFAZolin SODIUM 1 GM VIAL ONE (08:04)
--- NOTE | 2019-04-11 08:07 | HP ---
Past Medical History - Primary Care Physician PCP:: Josiane Ramirez - Admission Chief Complaint: 43 yrs , 39 .5 weeks gestation with previous c/sx2 , requests for repeat c/section & also requests for voluntory sterlization History of Present Illness: PNC at [address] [place] [address] . 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 No: GERD Hepatobiliary: Yes: Other (s/p cholecystectomy) ...: 3 ...Para: 2 (09/04/2007 primary c/s due to FTP '', 02/01/2009 Repeat c/s -"- at [facility]) ...Term: 2 ...: 0 ...Spon : 0 ...Induced : 0 ...Multiple Gestation: 0 ...LMP: 07/07/18 ... Weeks Gestation by Dates: 39.5 ...EDC by Dates: 04/13/19 ...EDC by Sono: 04/12/19 (39 .6 weeks by sono ) Heme/Onc: No: Anemia Infectious Disease: Yes: STD's (? 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 No : AIDS, HIV, Tuberculosis Psych: No: Addictions, Anxiety, Bipolar, Depression, Panic, Psychosis, Schizophrenia, Other Endocrine: No: Diabetes Mellitus - Past Surgical History Past Surgical History: Yes: None, Cholecystectomy (2018) Hx Myomectomy: No Hx Transabdominal Cerclage: No - Smoking History Smoking history: Never smoked Have you smoked in the past 12 months: No - Alcohol/Substance Use Hx Alcohol Use: No History of Substance Use: reports: None Home Medications - Allergies Allergies/Adverse Reactions: Allergies Allergy/AdvReac Type Severity Reaction Status Date / Time No Known Allergies Allergy Verified 01/17/19 21:51 - Home Medications Home Medications: Ambulatory Orders Vitamins (Sjr) - 1 tab PO DAILY 01/17/19 Physical Exam - Maternity Vital Signs: Vital Signs Temperature 98.3 F 04/11/19 07:45 Pulse Rate 91 H 04/11/19 07:45 Respiratory Rate 18 04/11/19 07:45 Blood Pressure 123/77 04/11/19 07:45 O2 Sat by Pulse Oximetry (%) Constitutional: Yes: Well Nourished, No Distress Eyes: Yes: WNL HENT: Yes: WNL Neck: Yes: WNL Cardiovascular: Yes: WNL Lungs: Clear to auscultation Breast(s): Yes: WNL - Abdominal Exam/OB Fundal Height: 40 Number of Fetuses: Single Presentation: Vertex Contractions: No Heart Rate (range): 130 Heart Rate Location: Midline Category: I Accelerations: Uniform Decelerations: None - Vaginal Exam/OB Vaginal Bleediing: No Dilatation (cm): close Effacement (%): unefface Amniotic Membrane Status: Intact Presentation: Vertex/Position Station: -3 - Physical Exam Musculoskeletal: Yes: WNL Extremities: Yes: WNL Edema: LLE: Trace, RLE: Trace Integumentary: Yes: Incision (pfannensteil incision scar, laproscopy scars), Other Deep Tendon Reflex Grade: Normal +2 ...Motor Strength: WNL Psychiatric: Yes: WNL - Labs Lab Results: Laboratory Tests 04/09/19 04/09/19 04/09/19 10:47 10:47 10:47 WBC 8.7 Hgb 12.8 Hct 36.9 Plt Count 269 PT with INR 10.90 INR 0.92 Sodium 138 Potassium 3.8 Chloride 107 BUN 9.4 Creatinine 0.6 Random Glucose 128 H AST 24 ALT 21 RPR Titer 04/09/19 10:47 WBC Hgb Hct Plt Count PT with INR INR Sodium Potassium Chloride BUN Creatinine Random Glucose AST ALT RPR Titer Nonreactive Problem List - Problems (1) with 39 completed weeks gestation Code(s): Z3A.39 - 39 WEEKS GESTATION OF (2) Previous section complicating Code(s): O34.219 - MATERNAL CARE FOR UNSP TYPE SCAR FROM PREVIOUS DEL (3) Multiparity Code(s): Z64.1 - PROBLEMS RELATED TO MULTIPARITY (4) Positive GBS test Code(s): B95.1 - STREPTOCOCCUS, GROUP B, CAUSING DISEASES CLASSD ELSWHR (5) AMA (advanced maternal age) multigravida 35+ Code(s): O09.529 - SUPERVISION OF ELDERLY MULTIGRAVIDA, UNSPECIFIED TRIMESTER Assessment/Plan 43 yrs , 39 .5 weeks , previous c/section , x2 , GBS pos , requests for repeat c/s & BTL
[2019-04-11] MEDS ORDERED: OXYTOCIN 10 UNITS/ML VIAL ONE (08:29)
[2019-04-11] MEDS ORDERED: WITCH HAZEL 50% (TUCKS) 40 PAD/JAR PAD TP PRN (09:30)
[2019-04-11] MEDS ORDERED: METHYLERGONOVINE MALEATE 0.2 MG/1 ML AMP IM PRN (09:30)
[2019-04-11] MEDS ORDERED: BENZOCAINE 28 GM HEMORRHOIDAL OINTMENT TP PRN (09:30)
[2019-04-11] MEDS ORDERED: BENZOCAINE 20% 57 GM BOTTLE TP PRN (09:30)
[2019-04-11] MEDS ORDERED: BISACODYL 10 MG SUPP.RECT RC PRN (09:30)
--- NOTE | 2019-04-11 09:45 | PN ---
Delivery - Delivery Section: Repeat, Low Flap Transverse (BTL) Type of Anesthesia: Spinal Episiotomy/Laceration: None EBL (cc): 700 (urine output 100ml blaire color) Delivery, Single - Stages of Labor Date of Delivery: 04/11/19 Time of Delivery: 08:32 Date Placenta Delivered: 04/11/19 Time Placenta Delivered: :33 Placenta: Yes: Manual Removal, Uterine Exploration - Condition of Residential Subcontractor/Mall Manager Present: Yes Name: Barrett Armstrong Infant Gender: Female Weight: 7 lb 15 oz Position: Left, OT Total Hours ROM (Hrs/Mins): 2 - 1 Minute Total Score: 9 5 Minutes Total Score: 9 - Feeding Plan Initial Plan: Elected not to breastfeed exclusively throughout hospitalization Remarks - Remarks Remarks: 43 yrs , 39.5 weeks, previous c/section & requests voluntary sterilization Indication : 39 .5 wks, previous c/sx2, Multiparity , voluntary sterilization GBS pos . intra op 2gm IV ancef given Intraop course uneventful
[2019-04-11] MEDS ORDERED: OXYTOCIN 20 UNITS in 0.9% NS 20 UNIT/1,000 ML INFUS.BAG IV ONE (09:52)
--- NOTE | 2019-04-11 09:52 | OP ---
Operative Note - Note: Operative Date: 04/11/19 Pre-Operative Diagnosis: 39.5 weeks, previous c/sectio x2 , voluntary sterilization Operation: Repeat LFTC/sec BTL Findings: TOB; 8.32 AM, , Baby Girl,Vx, LOT position 9/9 , Wt 7'15" Roll Forming Machine Set Up Operator : Dr Patti Hyde Both tubes ligated & cut by modified darrick technique . while inserting uterus back into peritoneal cavity left broad ligament veins burst bleeding , below , tubal ligation site , Below hematoma in mesosalpinx held with kellyclamp , including tube & btl site , portion of tube above tied & transfixed , hemostasis achieved Surgeon: Josiane Ramirez Category Planner: Facundo Mo Anesthesiologist/CHILD DAY CARE PROVIDER: Bharathi Telles Anesthesia: Spinal Specimens Removed: cord segment for cord gas. cord blood. placenta. Left Tube portion. Right Tubal Portion Estimated Blood Loss (mls): 700 Drains, Volume Out (mls): 100 (hinton urine, blaire color ) Fluid Volume Replaced (mls): 1,500 (Iv ancef 2 gm prior to incision ) Operative Report Dictated: Yes
[2019-04-11] MEDS: OXYTOCIN 20 UNITS in 0.9% NS 20 UNIT/1,000 ML INFUS.BAG IV SCH ×2 (10:00→18:21)
[2019-04-12] MEDS: IBUPROFEN 600 MG TABLET (FP) PO PRN ×2 (06:37→20:25)
[2019-04-12] MEDS: ACETAMINOPHEN 325 MG TABLET (FP) PO PRN ×3 (06:37→20:26)
[2019-04-12 07:47] LABS: BASO % 0.5 % (0-2.0); EOS % 0.7 % (0-4.5); HEMATOCRIT 35.6 % (32.4-45.2); HEMOGLOBIN 12.4 GM/dL (10.7-15.3); LYMPH % 8.5 % (8-40); MCH 31.5 pg (25.7-33.7); MCHC 34.8 g/dl (32.0-36.0); MEAN CELL VOLUME 90.7 fl (80-96); MEAN PLT VOLUME 8.2 fl (7.5-11.1); MONO % 5.6 % (3.8-10.2); NEUT % 84.7 % (42.8-82.8); PLATELET COUNT 246 K/MM3 (134-434); RBC 3.92 M/mm3 (3.60-5.2); RDW 13.8 % (11.6-15.6); WHITE BLOOD COUNT 13.1 K/mm3 (4.0-10.0)
--- NOTE | 2019-04-12 08:32 | OP ---
DATE OF OPERATION: 04/11/2019 PREOPERATIVE DIAGNOSES: A 39.5-week , previous sections x2, voluntary sterilization. OPERATION DONE: A repeat low flap transverse section, bilateral tubal ligation. SURGEON: Josiane Ramirez MD BOILERS AND [employer]ESSURE VESSELS INSPECTOR SURGEON: OMAR Alamo ANESTHESIOLOGIST: Bharathi Telles MD ANESTHESIA: Spinal. SPORTS MARKETING COORDINATOR: Barrett Armstrong MD FINDINGS: This is a 43-year-old 3, para 2-0-0-2 at 39.5 weeks gestation who is not in labor, is scheduled for elective with tubal ligation. Baby born girl, 9, 9, weight was 7 pounds 15 ounces. PROCEDURE: Patient was taken to the operating room table, and preoperatively, Horton catheter was placed and SCD stockings in situ. She was given spinal anesthesia, placed in supine position, and abdomen was painted and draped in the usual manner. Then, a Pfannenstiel incision was made through previous scar. The skin and subcutaneous tissue were entered. Rectus sheath was incised transversely. Bleeding points were clamped and cauterized. Rectus muscle was from the rectus sheath. Parietal peritoneum was opened vertically. Lower flap of bladder peritoneum was incised transversely. Lower uterine segment was isolated. Lower uterine segment was incised transversely. Amniotic fluid was blaire color, large amount. The baby was delivered from LOT position at 8:32 a.m. was 9, 9, a baby girl, babys weight was 7 pounds 15 ounces. Cord was clamped. Immediate oral and nasal suction was done at the time of the , and baby was handed over to the associate director of sales. Cord blood was collected and the cord segment before that was sent for the cord blood gases, and the placenta was removed completely with the membranes. The uterus was exteriorized. It was a large uterus, and then, the uterine cavity was cleaned. Then the uterine incision was closed in 2 layers with Biosyn 0 suture. The first layer was a continuous locking with a Biosyn 0 suture, second layer was continuous intermittently locking with a Biosyn 0 suture. Hemostasis verified . Then, the bladder peritoneum also was closed with a Biosyn 0 suture. Then, first the left tube was held a little laterally in the avascular area, and the lateral ampulla portion of the tube was doubly ligated with 2-0 plain catgut suture . The tube was cut above the ligature and sent for pathological examination. Then the endosalpinx was cauterized. On the left side it was a lateral salpingectomy done. The fimbria was included in the segment, and the portion below was doubly tied and portion above was cut and sent for pathological examination. Hemostasis was verified. . As we put back the uterus into the peritoneal cavity, difficulty was encountered. On the left side in the mesosalpinx, hematoma was noted, and bleeding from the tubal ligation site was seen. So, immediately, the Farzana clamp was held below the hematoma and it included the tube and the tubal ligation site, and the portion above then was cut with cautery, and the stumps, lateral and medial stumps, were separately, ligated with a plain 2-0 catgut and transfixed with a 3-0 Vicryl suture on a needle. Hemostasis was verified, and irrigation was done, and the sponge, instrument, needle counts were correct, and then the closure of the abdomen was done. The parietal peritoneum was closed with a Vicryl 0 suture. Muscles were approximated together with an interrupted Vicryl 0 suture. Hemostasis was checked underneath the rectus sheath flap. The rectus sheath was closed with a Vicryl 0 suture. Continuous sutures were taken, and then, the skin was mobilized from underneath scar, and subcutaneous tissue was approximated with interrupted Vicryl 0 suture, and then , skin was approximated with kat. Pressure dressing was given. Blood clots were removed from the vagina. Patient tolerated the procedure well. Estimated blood loss was 700 mL, and intraoperative urine output [id number] mL blaire colored. She received 2 g of IV Ancef prior to the incision. [place] [id number] MTDD
[2019-04-12] MEDS: PRENATAL VITAMINS W/ FOLIC ACID TABLET (FP) PO SCH (09:45)
[2019-04-12] MEDS: ENOXAPARIN NA (PORCINE) 40 MG/0.4 ML DISP.SYRIN SQ SCH (09:45)
[2019-04-12] MEDS ORDERED: DIPHTH,PERTUSS(ACELL),TET 0.5 ML DISP.SYRIN IM ONE (10:00)
--- NOTE | 2019-04-12 10:21 | PN ---
Post Progress Note - Subjective Subjective: 43 yo Para 3 status post , seen and evaluated. Doing well. Post Day: 1 Type of Delivery: Repeat C/S Vital Signs: Vital Signs Temperature 98.2 F 04/12/19 06:00 Pulse Rate 80 04/12/19 06:00 Respiratory Rate 20 04/12/19 06:00 Blood Pressure 116/75 04/12/19 06:00 O2 Sat by Pulse Oximetry (%) 100 04/11/19 10:45 Breast Exam: Yes: Soft Uterus: Yes: Fundus @ umbilicus Incision: Yes: Dressing dry and intact Abdomen/GI: Yes: Abdomen soft Lochia: Yes: Rubra Lochia, amount: Small Extremities: Yes: Calves non-tender Perineum: Yes: Intact Activity: Other (She's lying in bed) - Labs Labs: CBC WBC 13.1 K/mm3 (4.0-10.0) H 04/12/19 07:15 RBC 3.92 M/mm3 (3.60-5.2) 04/12/19 07:15 Hgb 12.4 GM/dL (10.7-15.3) 04/12/19 07:15 Hct 35.6 % (32.4-45.2) 04/12/19 07:15 MCV 90.7 fl (80-96) 04/12/19 07:15 MCH 31.5 pg (25.7-33.7) 04/12/19 07:15 MCHC 34.8 g/dl (32.0-36.0) 04/12/19 07:15 RDW 13.8 % (11.6-15.6) 04/12/19 07:15 Plt Count 246 K/MM3 (134-434) 04/12/19 07:15 MPV 8.2 fl (7.5-11.1) 04/12/19 07:15 Absolute Neuts (auto) 11.1 K/mm3 (1.5-8.0) H 04/12/19 07:15 Neutrophils % 84.7 % (42.8-82.8) H 04/12/19 07:15 Lymphocytes % 8.5 % (8-40) D 04/12/19 07:15 Monocytes % 5.6 % (3.8-10.2) 04/12/19 07:15 Eosinophils % 0.7 % (0-4.5) 04/12/19 07:15 Basophils % 0.5 % (0-2.0) 04/12/19 07:15 Nucleated RBC % 0 % (0-0) 04/12/19 07:15 Problem List - Problems (1) Status post repeat low transverse section Code(s): Z98.891 - HISTORY OF UTERINE SCAR FROM PREVIOUS SURGERY Assessment/Plan Status post repeat . Ambulation analgesia as needed Continue routine post op care
--- NOTE | 2019-04-12 11:47 | PN ---
Progress Note, Physician Chief Complaint: s/p c section under spinal anesthesia History of Present Illness: post op day one with duramorph in the intrathecal space for post op analgesia - Current Medication List Current Medications: Active Medications Acetaminophen (Tylenol -) 650 mg PO Q3H PRN PRN Reason: PAIN LEVEL 1-5 Last Admin: 04/12/19 06:37 Dose: 650 mg Benzocaine (Americaine 20% [place] -) 1 spray TP PRN PRN PRN Reason: PAIN Benzocaine (Americaine Ointment -) 1 applic TP PRN PRN PRN Reason: PAIN Bisacodyl (Dulcolax Suppository -) 10 mg RC PRN PRN PRN Reason: CONSTIPATION Diphenhydramine HCl (Benadryl Injection -) 25 mg IVPUSH Q4H PRN PRN Reason: Pruritis Enoxaparin Sodium (Lovenox -) 40 mg SQ DAILY [facility] Last Admin: 04/12/19 09:45 Dose: 40 mg Ferrous Sulfate (Feosol -) 325 mg PO BIDWM [facility] Oxytocin/Sodium Chloride (Normal Saline+20 Units Oxytocin -) 20 unit in 1,000 mls @ 125 mls/hr IV ASDIR [facility] Last Admin: 04/11/19 18:21 Dose: 125 mls/hr Ibuprofen (Motrin -) 600 mg PO Q4H PRN PRN Reason: PAIN LEVEL 4 - 6 Last Admin: 04/12/19 06:37 Dose: 600 mg Methylergonovine Maleate (Methergine Injection -) 0.2 mg IM Q4H PRN PRN Reason: EXCESSIVE BLEEDING (L&D) Ondansetron HCl (Zofran Injection) 4 mg IVPUSH Q4H PRN PRN Reason: NAUSEA Oxycodone HCl (Roxicodone -) 5 mg PO Q6H PRN PRN Reason: PAIN LEVEL 7 - 10 Multivit/Folic Acid/Iron ( Vitamins (Sjr) -) 1 tab PO DAILY [facility] Last Admin: 04/12/19 09:45 Dose: 1 tab Senna/Docusate Sodium (Pericolace -) 2 tablet PO HS PRN PRN Reason: CONSTIPATION Witch Omaira/Glycerin (Tucks Pads -) 1 pad TP PRN PRN PRN Reason: PAIN - Objective Vital Signs: Vital Signs Temperature 98.2 F 04/12/19 06:00 Pulse Rate 80 04/12/19 06:00 Respiratory Rate 20 04/12/19 06:00 Blood Pressure 116/75 04/12/19 06:00 O2 Sat by Pulse Oximetry (%) 100 04/11/19 10:45 Constitutional: Yes: Well Nourished Cardiovascular: Yes: WNL Respiratory: Yes: WNL Gastrointestinal: Yes: WNL Labs: CBC, BMP 04/12/19 07:15 Assessment/Plan No adverse anesthetic complications, pain controlled, mild itching to be treated with benadryl, no further intervention by the dept of anesthesia at this time.
[2019-04-12] MEDS: oxyCODONE HCL 5 MG TABLET PO PRN ×2 (15:24→20:26)
[2019-04-12] MEDS: FERROUS SO4 325 MG TABLET (FP) PO SCH (18:40)
[2019-04-12] MEDS ORDERED: SENNOSIDES/DOCUSATE COMBO (SENNA PLUS) TABLET (UD) PO PRN (22:00)
[2019-04-13] MEDS: OXYTOCIN 20 UNITS in 0.9% NS 20 UNIT/1,000 ML INFUS.BAG IV SCH (01:32)
[2019-04-13] MEDS: ACETAMINOPHEN 325 MG TABLET (FP) PO PRN ×2 (04:38→23:26)
[2019-04-13] MEDS: IBUPROFEN 600 MG TABLET (FP) PO PRN ×3 (04:38→23:23)
[2019-04-13] MEDS: oxyCODONE HCL 5 MG TABLET PO PRN ×2 (04:39→18:42)
[2019-04-13] MEDS ORDERED: BISMUTH SUBSALICYLATE 524 MG/30 ML UD PO PRN (04:52)
[2019-04-13] MEDS: FERROUS SO4 325 MG TABLET (FP) PO SCH ×2 (08:08→17:02)
--- NOTE | 2019-04-13 10:16 | PN ---
Post Progress Note - Subjective Subjective: 43 yo Para 3, status post repeat , seen and evaluated. She c/o having diarrhea all night; she's very tired due to lack of sleep last night. Diarrhea cause is unknown. Post Day: 2 Type of Delivery: Repeat C/S Vital Signs: Vital Signs Temperature 96.6 F L 04/12/19 21:47 Pulse Rate 82 04/12/19 21:47 Respiratory Rate 18 04/12/19 21:47 Blood Pressure 125/79 04/12/19 21:47 O2 Sat by Pulse Oximetry (%) 100 04/11/19 10:45 Breast Exam: Yes: Soft Uterus: Yes: Fundus Firm Incision: Yes: Dressing dry and intact Abdomen/GI: Yes: Abdomen soft Lochia: Yes: Rubra Lochia, amount: Small Extremities: Yes: Calves non-tender Perineum: Yes: Intact Activity: Ambulating - Labs Labs: CBC WBC 13.1 K/mm3 (4.0-10.0) H 04/12/19 07:15 RBC 3.92 M/mm3 (3.60-5.2) 04/12/19 07:15 Hgb 12.4 GM/dL (10.7-15.3) 04/12/19 07:15 Hct 35.6 % (32.4-45.2) 04/12/19 07:15 MCV 90.7 fl (80-96) 04/12/19 07:15 MCH 31.5 pg (25.7-33.7) 04/12/19 07:15 MCHC 34.8 g/dl (32.0-36.0) 04/12/19 07:15 RDW 13.8 % (11.6-15.6) 04/12/19 07:15 Plt Count 246 K/MM3 (134-434) 04/12/19 07:15 MPV 8.2 fl (7.5-11.1) 04/12/19 07:15 Absolute Neuts (auto) 11.1 K/mm3 (1.5-8.0) H 04/12/19 07:15 Neutrophils % 84.7 % (42.8-82.8) H 04/12/19 07:15 Lymphocytes % 8.5 % (8-40) D 04/12/19 07:15 Monocytes % 5.6 % (3.8-10.2) 04/12/19 07:15 Eosinophils % 0.7 % (0-4.5) 04/12/19 07:15 Basophils % 0.5 % (0-2.0) 04/12/19 07:15 Nucleated RBC % 0 % (0-0) 04/12/19 07:15 Problem List - Problems (1) Status post repeat low transverse section Code(s): Z98.891 - HISTORY OF UTERINE SCAR FROM PREVIOUS SURGERY Assessment/Plan Status post repeat . Diarrhea Pepto bismal Repeat Labs Stool culture
[2019-04-13] MEDS: PRENATAL VITAMINS W/ FOLIC ACID TABLET (FP) PO SCH (11:13)
[2019-04-13] MEDS: ENOXAPARIN NA (PORCINE) 40 MG/0.4 ML DISP.SYRIN SQ SCH (11:13)
[2019-04-13 11:36] LABS: BASO % 0.3 % (0-2.0); EOS % 0.6 % (0-4.5); HEMATOCRIT 34.3 % (32.4-45.2); HEMOGLOBIN 11.8 GM/dL (10.7-15.3); MCH 31.7 pg (25.7-33.7); MCHC 34.6 g/dl (32.0-36.0); MEAN CELL VOLUME 91.7 fl (80-96); MEAN PLT VOLUME 7.9 fl (7.5-11.1); NEUT % 85.1 % (42.8-82.8); PLATELET COUNT 280 K/MM3 (134-434); RBC 3.74 M/mm3 (3.60-5.2); RDW 13.7 % (11.6-15.6); WHITE BLOOD COUNT 7.9 K/mm3 (4.0-10.0)
[2019-04-13 11:58] LABS: BLOOD UREA NITROGEN 10.2 mg/dL (7-18); CALCIUM 7.8 mg/dL (8.5-10.1); CREATININE 0.5 mg/dL (0.55-1.3); POTASSIUM 3.5 mmol/L (3.5-5.1)
--- NOTE | 2019-04-13 17:01 | PN ---
Progress Note (short form) - Note Progress Note: pod #2 s/p Repeat c/s BTL pt c/o diarrhea since last night , watery , green color stool with odor, frequency less than last night stool sample sent for testing c/o coloicky pain pt denies eating anything unusual, she had no problem prior to surgery no c/o vomiting or fever pt feels very weak, taking po fluids voiding without difficulty Selected Entries 04/13/19 10:00 Temperature 98.0 F Pulse Rate 79 Blood Pressure 116/68 Laboratory Tests 04/13/19 04/13/19 11:20 11:20 WBC 7.9 Hgb 11.8 Hct 34.3 Plt Count 280 Neutrophils % 85.1 H Lymphocytes % 6.0 L D Sodium 140 Potassium 3.5 Chloride 108 H Carbon Dioxide 24 Anion Gap 8 Creatinine 0.5 L Random Glucose 125 H Calcium 7.8 L o/e pt appears exhausted . mildly dehydrated v/s stable rs cta p/a not distended . abd soft BS hyperactive ut firm below umblicus . not tender ass s/p ? viral enteritis , post op day#2 rc/s btl Plan start iv fluids until pt feeels better Problem List - Problems (1) with 39 completed weeks gestation Code(s): Z3A.39 - 39 WEEKS GESTATION OF (2) Previous section complicating Code(s): O34.219 - MATERNAL CARE FOR UNSP TYPE SCAR FROM PREVIOUS DEL (3) Multiparity Code(s): Z64.1 - PROBLEMS RELATED TO MULTIPARITY (4) Positive GBS test Code(s): B95.1 - STREPTOCOCCUS, GROUP B, CAUSING DISEASES CLASSD ELSWHR (5) AMA (advanced maternal age) multigravida 35+ Code(s): O09.529 - SUPERVISION OF ELDERLY MULTIGRAVIDA, UNSPECIFIED TRIMESTER
[2019-04-13] MEDS ORDERED: DEXTROSE 5%-LACTATED RINGERS 500 ML IV ONE (17:15)
[2019-04-13] MEDS ORDERED: DEXTROSE 5%-LACTATED RINGERS 1,000 ML IV SCH ×2 (17:15→18:15)
[2019-04-14] MEDS: oxyCODONE HCL 5 MG TABLET PO PRN (00:42)
--- NOTE | 2019-04-14 05:46 | DS ---
Physical Exam-EXTERNAL GRINDER TOOL Vital Signs: Vital Signs Temperature 98.1 F 04/13/19 20:42 Pulse Rate 80 04/13/19 20:42 Respiratory Rate 18 04/13/19 20:42 Blood Pressure 124/78 04/13/19 20:42 O2 Sat by Pulse Oximetry (%) 100 04/11/19 10:45 Constitutional: No: No Distress Eyes: Yes: Conjunctiva Clear HENT: Yes: Atraumatic Neck: Yes: Supple Cardiovascular: Yes: Regular Rate and Rhythm Respiratory: Yes: Regular Gastrointestinal: Yes: Normal Bowel Sounds ...Rectal Exam: Yes: WNL External Genitalia: Yes: Normal Vaginal Exam: Yes: Normal Cervix: Yes: Normal Uterus: Yes: Firm Breast(s): Yes: WNL Musculoskeletal: Yes: WNL Extremities: Yes: WNL Wound/Incision: Yes: Well Approximated, [place] Intact Neurological: Yes: Alert, Oriented ...Motor Strength: WNL Psychiatric: Yes: Alert, Oriented Labs: CBC, BMP 04/13/19 11:20 04/13/19 11:20 Delivery - Delivery Section: Repeat, Low Flap Transverse (BTL) Type of Anesthesia: Spinal Episiotomy/Laceration: None EBL (cc): 700 Delivery, Single - Stages of Labor Date of Delivery: 04/11/19 Time of Delivery: 08:32 Time Placenta Delivered: 08:33 Placenta: Yes: Manual Removal, Uterine Exploration - Condition of Infant Clay Molder/Immigration Coordinator Present: Yes Name: Barrett Armstrong Gender: Female Weight: 7 lb 15 oz Position: Left, OT Total Hours ROM (Hrs/Mins): 2 - 1 Minute Total Score: 9 5 Minutes Total Score: 9 - [place] Feeding Plan Initial Plan: Elected not to breastfeed exclusively throughout hospitalization Discharge Summary Reason For Visit: SCHEDULED C/SECTION Current Active Problems AMA (advanced maternal age) multigravida 35+ (Acute) Multiparity (Acute) Positive GBS test (Acute) with 39 completed weeks gestation (Acute) Previous section complicating (Acute) Status post repeat low transverse section (Acute) Procedures: Principal: Repeat Low Transverse Hospital Course: Patient develop diarrhea and was treated. No antibiotic or blood transfusion required. Condition: Good - Instructions Diet, Activity, Other Instructions: Regular diet No driving, no lifting x 4 weeks F/U in clinic in 2 weeks Disposition: HOME - Home Medications Comprehensive Discharge Medication List: Ambulatory Orders Vitamins (Sjr) - 1 tab PO DAILY 01/17/19
[2019-04-14] MEDS: FERROUS SO4 325 MG TABLET (FP) PO SCH ×2 (10:05→18:14)
[2019-04-14] MEDS: ENOXAPARIN NA (PORCINE) 40 MG/0.4 ML DISP.SYRIN SQ SCH (10:05)
[2019-04-14] MEDS: PRENATAL VITAMINS W/ FOLIC ACID TABLET (FP) PO SCH (10:05)
[2019-04-14] MEDS: IBUPROFEN 600 MG TABLET (FP) PO PRN (13:15)
[2019-04-14] MEDS: ACETAMINOPHEN 325 MG TABLET (FP) PO PRN (13:16)
[2019-04-15] MEDS: ACETAMINOPHEN 325 MG TABLET (FP) PO PRN (02:46)
[2019-04-15] MEDS: IBUPROFEN 600 MG TABLET (FP) PO PRN (02:46)
--- NOTE | 2019-04-15 07:30 | PN ---
Post Progress Note - Subjective Subjective: ambulating, tolering PO, lochia decreased, breast feeding, loose green stools. Post Day: 4 Type of Delivery: Repeat C/S Vital Signs: Vital Signs Temperature 99.6 F 04/14/19 21:18 Pulse Rate 78 04/14/19 21:18 Respiratory Rate 20 04/14/19 21:18 Blood Pressure 116/56 L 04/14/19 21:18 O2 Sat by Pulse Oximetry (%) 100 04/11/19 10:45 Breast Exam: Yes: Other (deferred) Uterus: Yes: Fundus Firm Incision: Yes: [place] intact Abdomen/GI: Yes: Abdomen soft Extremities: Yes: Calves non-tender Activity: Ambulating - Labs Labs: CBC WBC 7.9 K/mm3 (4.0-10.0) 04/13/19 11:20 RBC 3.74 M/mm3 (3.60-5.2) 04/13/19 11:20 Hgb 11.8 GM/dL (10.7-15.3) 04/13/19 11:20 Hct 34.3 % (32.4-45.2) 04/13/19 11:20 MCV 91.7 fl (80-96) 04/13/19 11:20 MCH 31.7 pg (25.7-33.7) 04/13/19 11:20 MCHC 34.6 g/dl (32.0-36.0) 04/13/19 11:20 RDW 13.7 % (11.6-15.6) 04/13/19 11:20 Plt Count 280 K/MM3 (134-434) 04/13/19 11:20 MPV 7.9 fl (7.5-11.1) 04/13/19 11:20 Absolute Neuts (auto) 6.7 K/mm3 (1.5-8.0) 04/13/19 11:20 Neutrophils % 85.1 % (42.8-82.8) H 04/13/19 11:20 Lymphocytes % 6.0 % (8-40) L D 04/13/19 11:20 Monocytes % 8.0 % (3.8-10.2) 04/13/19 11:20 Eosinophils % 0.6 % (0-4.5) 04/13/19 11:20 Basophils % 0.3 % (0-2.0) 04/13/19 11:20 Nucleated RBC % 0 % (0-0) 04/13/19 11:20 Assessment/Plan POD # 4 and PP/post-op precautions discussed. Diarrhea and awaiting stool results -Continue PP care -F/U results -Manage accordingly
[2019-04-15] MEDS: FERROUS SO4 325 MG TABLET (FP) PO SCH (08:15)
[2019-04-15] MEDS: ENOXAPARIN NA (PORCINE) 40 MG/0.4 ML DISP.SYRIN SQ SCH (10:07)
[2019-04-15] MEDS: PRENATAL VITAMINS W/ FOLIC ACID TABLET (FP) PO SCH (10:07)
[2019-04-15 10:15] VITALS: BP 143/77; PULSE 63; TEMP 98.4
--- NOTE | 2019-04-15 14:50 | PN ---
Progress Note (short form) - Note Progress Note: po rc/s btl day #4 pt improved from diarrhea, she had no episode since yesterday 11.00 aM stoo culture still pendimg pt subjectively feels better, voiding without difficulty breast feeding afebrile & v/s stable Selected Entries 04/14/19 04/15/19 21:18 10:00 Temperature 99.6 F 98.4 F Pulse Rate 78 63 Blood Pressure 116/56 L 143/77 p/a soft , not distended . BS active, not hyperactive ut firm , non tender , below umblicus Incision : kat removed in at 7.45AM, wound edges well approximated , steri strips applied , no oozing, no erythema , no tenderness lochia light , no odor breast soft, not engorged no calf tenderness ass stable s/p rc/s btl , recovered kehinde episode of diarrhea ( possible viral eneritis ) , stool culture pending Plan : discharge today f/u stool results in the clinic surgical pathology report pending for tubal potion Left & Right side pp instructions given rtc 1 week Problem List - Problems (1) with 39 completed weeks gestation Code(s): Z3A.39 - 39 WEEKS GESTATION OF (2) Previous section complicating Code(s): O34.219 - MATERNAL CARE FOR UNSP TYPE SCAR FROM PREVIOUS DEL (3) Multiparity Code(s): Z64.1 - PROBLEMS RELATED TO MULTIPARITY (4) Positive GBS test Code(s): B95.1 - STREPTOCOCCUS, GROUP B, CAUSING DISEASES CLASSD ELSWHR (5) AMA (advanced maternal age) multigravida 35+ Code(s): O09.529 - SUPERVISION OF ELDERLY MULTIGRAVIDA, UNSPECIFIED TRIMESTER
--- NOTE | 2019-04-15 15:41 | PATH ---
Surgical Pathology Report Patient Name: JEWELS JARVIS [facility]. Rec. #: [id number] /Age/Gender: 1975 (Age: 43) / F Account: [id number] Location: [facility] OBS/SYSTEMS SOFTWARE MANAGER Taken: 04/11/2019 Received: 04/14/2019 Reported: 04/15/2019 Physicians: Josiane Ramirez M.D. Specimen(s) Received A: PLACENTA B: FALLOPIAN TUBE LEFT C: FALLOPIAN TUBE RIGHT Clinical History , 2007 and 2008 Final Diagnosis A. PLACENTA: THIRD TRIMESTER PLACENTA. TRIVASCULAR CORD. MEMBRANES WITH NO DIAGNOSTIC ABNORMALITIES. B. LEFT FALLOPIAN TUBE, RESECTION: COMPLETE CROSS SECTION OF THE FALLOPIAN TUBE IDENTIFIED. C. RIGHT FALLOPIAN TUBE, RESECTION: COMPLETE CROSS SECTION OF THE FALLOPIAN TUBE IDENTIFIED. Electronically Signed Elvin Lezama M.D. Gross Description A. The specimen is received fresh labeled placenta and is a 458 gram, 17.0 x 16.0 x 2.8 cm. placenta with attached membranes and umbilical cord. The attached membranes are olivera, translucent with focal opacities and insert marginally. The umbilical cord measures 15 cm. in length and averages 1 cm. in diameter. The cord inserts eccentrically, 2 cm. to the nearest margin. No true knots or strictures are identified. Cut surface of the umbilical cord reveals 3 vessels. The surface is vega-blue with minimal fibrin deposition and appropriate caliber vessels. The maternal surface is red-brown with focal defects. Sectioning reveals red-brown, spongy parenchyma. No lesions are identified. [employer] sections are submitted in three cassettes as follows: 1- membrane rolls and umbilical cord; 2-3- full thickness sections of placenta. B. Received in formalin labeled "fallopian tube left," is a 2.0 cm in length fimbriated fallopian tube. The outer surface is olivera-red with adhesions. Sectioning reveals an unremarkable lumen. [employer] sections are submitted in 2 cassettes as follows: 1-fimbria; 2-cross sections of fallopian tube. C. Received in formalin labeled "fallopian tube right," is a 2 cm in length fimbriated fallopian tube. The outer surface is olivera-pink and smooth. Sectioning reveals an unremarkable lumen. [employer] sections are submitted in 2 cassettes as follows: 1-fimbria; 2-cross sections of fallopian tubes. 04/14/2019 [facility]04/14/2019
== END 2019-04-15 12:33 | disposition home or self-care (01) | DRG 540 ==
LOC: JLDR 06:00 → J3W 14:30
PROVIDERS: ADMIT Obstetrics & Gynecology; ATTEND Obstetrics & Gynecology
PROC: 10D00Z1 Extraction of Products of Conception, Low, Open Approach (ICD-10-PCS; principal; 2019-04-11)
PROC: 0UL70ZZ Occlusion of Bilateral Fallopian Tubes, Open Approach (ICD-10-PCS; 2019-04-11)
DX: O34.219 Maternal care for unspecified type scar from previous cesarean delivery (principal); O99.824 Streptococcus B carrier state complicating childbirth; Z3A.39 39 weeks gestation of pregnancy; Z37.0 Single live birth; Z30.2 Encounter for sterilization
CPT/HCPCS: 36415; 36600; 80048; 82803; 85025; 87045; 87046; 88302-TC; 88307-TC; 90715

== ENCOUNTER 2019-10-24 19:11 | Emergency (ER) | payer OTHER ==
[2019-10-24 19:23] VITALS: BP 121/72; PULSE 77; TEMP 98; BMI 26.6
--- NOTE | 2019-10-24 19:23 | PDOC ---
Rapid Medical Evaluation Chief Complaint: Pain Time Seen by Provider: 10/24/19 19:20 Medical Evaluation: Allergies Allergy/AdvReac Type Severity Reaction Status Date / Time No Known Allergies Allergy Verified 01/17/19 21:51 10/24/19 19:20 Pt c/o: nid abd pain w/ diarrhea x 2 since this am, no fever, no other complaints Pt on brief exam: vss, upper periumbilical tenderness, no ruq, or lower abd tendernes pt ordered for: Pt to proceed to the ED Discharge Disposition - Diagnosis Diarrhea - Referrals - Patient Instructions - Post Discharge Activity
[2019-10-24] MEDS ORDERED: MAG HYDROX/AL HYDROX/SIMETH 30 ML UNIT-DOSE CUP PO ONE (20:50)
[2019-10-24] MEDS ORDERED: FAMOTIDINE 20 MG TABLET PO ONE (20:51)
[2019-10-24] MEDS ORDERED: FAMOTIDINE 20 MG TABLET ONE (21:00)
[2019-10-24] MEDS ORDERED: MAG HYDROX/AL HYDROX/SIMETH 30 ML UNIT-DOSE CUP ONE (21:00)
[2019-10-24 21:59] LABS: BASO % 0.5 % (0-2.0); HEMATOCRIT 37.6 % (32.4-45.2); LYMPH % 20.3 % (8-40); MCHC 34.6 g/dl (32.0-36.0); MEAN CELL VOLUME 86.7 fl (80-96); MEAN PLT VOLUME 8.2 fl (7.5-11.1); MONO % 8.3 % (3.8-10.2); NEUT % 67.9 % (42.8-82.8); PLATELET COUNT 299 K/MM3 (134-434); RBC 4.34 M/mm3 (3.60-5.2); RDW 13.1 % (11.6-15.6); WHITE BLOOD COUNT 7.9 K/mm3 (4.0-10.0)
--- NOTE | 2019-10-24 22:15 | PDOC ---
History of Present Illness - General Chief Complaint: Pain Stated Complaint: ABD PAIN Time Seen by Provider: 10/24/19 19:20 History Source: Patient Exam Limitations: No Limitations Past History - Past Medical History Allergies/Adverse Reactions: Allergies Allergy/AdvReac Type Severity Reaction Status Date / Time No Known Allergies Allergy Verified 10/24/19 19:23 Home Medications: Ambulatory Orders Vitamins (Sjr) - 1 tab PO DAILY 01/17/19 Ibuprofen 600 mg PO Q6H PRN #30 tablet 04/14/19 Asthma: No Cancer: No Cardiac Disorders: No COPD: No Diabetes: No GI Disorders: Yes (gastritis) Disorders: Yes (UTI 05/14) HTN: No Seizures: No Thyroid Disease: No - Surgical History Cholecystectomy: Yes (LAPAROSCOPIC) - Immunization History Immunization Up to Date: Yes - Psycho Social/Smoking Cessation Hx Smoking History: Never smoked Have you smoked in the past 12 months: No Hx Alcohol Use: No Drug/Substance Use Hx: No Hx Substance Use Treatment: No *Physical Exam - Vital Signs Last Vital Signs Temp Pulse Resp BP Pulse Ox 98 F 77 18 121/72 99 10/24/19 19:19 10/24/19 19:19 10/24/19 19:19 10/24/19 19:19 10/24/19 19:19 - Physical Exam General Appearance: No: Apparent Distress Neck: positive: Supple Respiratory/Chest: positive: Lungs Clear, Normal Breath Sounds. negative: Respiratory Distress Cardiovascular: positive: Regular Rhythm, Regular Rate, S1, S2. negative: Murmur Gastrointestinal/Abdominal: positive: Tender (mild along epigastric region), Soft. negative: Distended, Guarding, Rebound Integumentary: positive: Normal Color Neurologic: positive: Alert Heart Score/ECG Review - History History: Slightly suspicious - Electrocardiogram EKG: Normal - Age Age: </= 45 - Risk Factors Based on the list above the patient has:: No risk factors known - Troponin Troponin: </= normal limit - Score Heart Score - Total: 0 ED Treatment Course - LABORATORY CBC & Chemistry Diagram: 10/24/19 21:17 10/24/19 21:17 - ADDITIONAL ORDERS Additional order review: Laboratory Results 10/24/19 21:17 Urine HCG, Qual Negative 10/24/19 21:17 RBC 4.34 MCV 86.7 MCHC 34.6 RDW 13.1 MPV 8.2 Neutrophils % 67.9 D Lymphocytes % 20.3 D Monocytes % 8.3 Eosinophils % 3.0 D Basophils % 0.5 - Medications Given in the ED: ED Medications Discontinued Medications Generic Name Dose Route Start Last Admin Trade Name Derrick PRN Reason Stop Dose Admin Al Hydroxide/Mg Hydroxide 30 ml 10/24/19 20:50 10/24/19 21:03 Mylanta Oral Suspension - PO 10/24/19 20:51 30 ml ONCE ONE Administration Famotidine 20 mg 10/24/19 20:51 10/24/19 21:03 Pepcid - PO 10/24/19 20:52 20 mg ONCE ONE Administration Medical Decision Making - Medical Decision Making 44-year-old female with no significant past medical history presents with epigastric pain from yesterday. Also mentions she had 2 episodes of watery diarrhea yesterday which has now resolved. Denies fever, shortness of breath, chest pain, nausea, vomiting, dysuria, hematuria. Denies smoking or drug use EKG: NSR at 74 bpm, no ST-T changes Low risk for ACS Consider gastritis, possible viral syndrome Labs sent and pending Given Pepcid and Maalox 10/24/19 22:13 Labs reviewed and unremarkable HS is 0 Patient feeling better stable for dc 10/24/19 22:45 Discharge - Discharge Information Problems reviewed: Yes Clinical Impression/Diagnosis: Epigastric pain Condition: Stable Disposition: HOME - Admission No - Follow up/Referral Referrals: Mary Bach [Primary Care Provider] - - Patient Discharge Instructions Patient Printed Discharge Instructions: DI for Epigastric Pain Additional Instructions: Thank you for choosing [facility]. It was a pleasure taking care of you. Recommend drinking plenty of fluid daily (at least 2-3 L daily) You may take Pepcid 20 mg daily Eat light food like bananas, rice, applesauce, toast until feeling better Please follow-up with your doctor for further evaluation Return to the Emergency Department if your symptoms worsen or persist or have other concerning symptoms. Glenn por elegir el [facility]. Fue un placer cuidar de ti. Recomendamos beber mucho lquido diariamente (al menos 2-3 L diarios) Puede amee Pepcid 20 mg al da. Coma alimentos ligeros mariah pltanos, arroz, pur de manzana, tostadas hasta sentirse mejor Lay un seguimiento con hardy mdico para dominique evaluacin adicional. Regrese al departamento de emergencias si santos sntomas empeoran o persisten o si tiene otros sntomas preocupantes. - Post Discharge Activity
[2019-10-24 22:40] LABS: ALBUMIN 3.8 g/dl (3.4-5.0); ALK PHOS 118 U/L (45-117); ANION GAP 4 MMOL/L (8-16); BILIRUBIN,TOTAL 0.3 mg/dL (0.2-1); BLOOD UREA NITROGEN 10.1 mg/dL (7-18); CALCIUM 9.1 mg/dL (8.5-10.1); CHLORIDE 104 mmol/L (98-107); CO2 30 mmol/L (21-32); CREATININE 0.6 mg/dL (0.55-1.3); GLUCOSE,RANDOM 90 mg/dL (74-106); POTASSIUM 3.9 mmol/L (3.5-5.1); SGOT/AST 17 U/L (15-37); SGPT/ALT 31 U/L (13-61); SODIUM 138 mmol/L (136-145); TOT PROT 7.2 g/dl (6.4-8.2)
--- NOTE | 2019-10-25 13:27 | EKG ---
Test Reason : Blood Pressure : / mmHG Vent. Rate : 074 BPM Atrial Rate : 074 BPM P-R Int : 126 ms QRS Dur : 088 ms QT Int : 396 ms P-R-T Axes : 049 048 021 degrees QTc Int : 439 ms NORMAL SINUS RHYTHM NORMAL ECG WHEN COMPARED WITH ECG OF 24-NOV-2018 19:44, NO SIGNIFICANT CHANGE WAS FOUND Confirmed by RADHA VAN MD ([id number]) on 10/25/2019 1:26:55 PM Referred By: Confirmed By:RADHA VAN MD
== END 2019-10-24 23:15 | disposition home or self-care (01) ==
LOC: JER 19:11
DX: R10.13 Epigastric pain (principal)
CPT/HCPCS: 36415; 80053; 84484; 84703; 85025; 93005; 93010; 99284-25

== ENCOUNTER 2020-06-03 09:21 | Emergency (ER) | payer OTHER ==
--- NOTE | 2020-06-03 09:24 | PDOC ---
History of Present Illness - General Chief Complaint: Pain Stated Complaint: ABDOMINAL PAIN SENT IN BY PMD History Source: Patient Exam Limitations: No Limitations - History of Present Illness Initial Comments: 06/03/20 09:24 45F with PMH of x3, choleycystectomy, and bilateral tubal ligation pr esents to ED with abd pain that started 2 days ago, suddenly. The pain is intermittent, w/o provoking or alleviating factors. It's diffusely across the abdomen, worst around the umbilicus, and some pain radiates to left back. Reports 3 bowel movements yesterday. She denies fever, nausea, vomiting, d iarrhea, constipation, hematochezia, dysuria, abnormal vaginal bleeding or discharge. PMH: as in HPI SH: see below Meds: In chart Allergies: NKDA Tob/Etoh/Rec drugs: neg x3 PCP: Dr. Mary Bach Lead Auditor #: [id number] ROS GENERAL/CONSTITUTIONAL: No fever or chills. No weakness. HEENT: No change in vision. No ear pain or discharge. No sore throat. CARDIOVASCULAR: No chest pain or shortness of breath RESPIRATORY: No cough, wheezing, or hemoptysis. GASTROINTESTINAL: No nausea, vomiting, diarrhea or constipation. +abdominal pain GENITOURINARY: No dysuria, frequency, or change in urination. MUSCULOSKELETAL: No joint or muscle swelling or pain. No neck or back pain. SKIN: No rash NEUROLOGIC: No headache, vertigo, loss of consciousness, or change in strength/sensation. ENDOCRINE: No increased thirst. No abnormal weight change HEMATOLOGIC/LYMPHATIC: No anemia, easy bleeding, or history of blood clots. ALLERGIC/IMMUNOLOGIC: No hives or skin allergy. PE GENERAL: AOx3; no apparent distress HEAD: NC/AT EYES: PERRLA, EOMI, sclera anicteric, conjunctiva clear ENT: Auricles normal inspection, hearing grossly normal, nares patent, moist mucosa, oropharynx clear without exudates. NECK: Normal ROM, supple, no LAD, JVD, or masses HEART: RRR, normal S1/S2, no murmurs, rubs, or gallops. Peripheral pulses 2+ and equal bilaterally. LUNGS: No distress, speaks full sentences, CTA bilaterally ABDOMEN: Soft, non-distended, diffuse tenderness, worst at epigastric and periumbilical. No guarding or rebound. No masses. No CVA tenderness. Neg morse sign. RECTAL: no visible external hemorrhoids or fissures, no bright red blood or melena noted on digital rectal exam. EXTREMITIES: Normal inspection, Normal range of motion, no edema. NEUROLOGICAL: CNII-XII intact. Normal speech. No focal sensorimotor deficits SKIN: Warm, Dry, normal turgor. No rashes or lesions noted Eugene Addison, PGY1 Emergency Medicine Past History - Medical History Allergies/Adverse Reactions: Allergies Allergy/AdvReac Type Severity Reaction Status Date / Time No Known Allergies Allergy Verified 10/24/19 19:23 Home Medications: Ambulatory Orders Ciprofloxacin [Cipro -] 500 mg PO Q12H #20 tablet 06/03/20 Ferrous Sulfate [Iron] 325 mg PO DAILY 06/03/20 Vits96/Iron Fum/Folic [ Tablet] 1 each PO DAILY 06/03/20 metroNIDAZOLE [Flagyl -] 500 mg PO BID #20 tablet 06/03/20 Asthma: No Cancer: No Cardiac Disorders: No COPD: No Diabetes: No GI Disorders: Yes (gastritis) Disorders: Yes (UTI 05/14) HTN: No Seizures: No Thyroid Disease: No - Surgical History Cholecystectomy: Yes (LAPAROSCOPIC) - Immunization History Immunization Up to Date: Yes - Psycho-Social/Smoking History Smoking History: Never smoked Have you smoked in the past 12 months: No ED Treatment Course - LABORATORY CBC & Chemistry Diagram: 06/03/20 10:21 06/03/20 10:21 Medical Decision Making - Medical Decision Making 06/03/20 10:19 45F p/w abd pain for 2 days. On exam, pain is worst at periumbilical, but diffusely tender w/o rebound. -> no need to r/o ectopic due to tubal ligation, location may reflect early appendicitis, diffuse nature could be gastroenteritis, diverticulitis -> will get CBC, CMP, UA, lipase, and CT abd/pelvis 06/03/20 11:19 Stool negative for occult blood. CBC wnl. 06/03/20 11:55 CMP wnl (Gluc 96, BUN 12, cr 0.57, Na+ 138, K+ 4.2, Cl- 107, CO2 27, Ca 9.1, protein 7.7, albumin 4.2, total bili 0.6, AST 22, ALT 23, alk phos 83) 06/03/20 13:07 CT abd/pelvis: borderline thickening of terminal ileum wall with possible mild adjacent mesenteric edema -> may reflect mild terminal ileitis -> pt given cipro + metronidazole. Advised to f/u with GI. Discharge - Discharge Information Problems reviewed: Yes Clinical Impression/Diagnosis: Terminal ileitis Qualifiers: Digestive disease complication type: unspecified complication Qualified Code(s): K50.019 - Crohn's disease of small intestine with unspecified complications Condition: Stable Disposition: HOME - Admission No - Additional Discharge Information Prescriptions: Ciprofloxacin [Cipro -] 500 mg PO Q12H #20 tablet metroNIDAZOLE [Flagyl -] 500 mg PO BID #20 tablet - Follow up/Referral Referrals: Mary Bach [Primary Care Provider] - Eric Hammond DO [Staff Physician] - Vikas Villa MD [Staff Physician] - Selena Montero MD [Staff Physician] - - Patient Discharge Instructions Patient Printed Discharge Instructions: DI for Ileitis Additional Instructions: Please return to the emergency department immediately should you feel worse in any way or have any of the following symptoms: increasing or different abdominal pain, persistent vomiting, fevers or shaking chills. Please return to the emergency department for a recheck in 8-12 hours if the pain is persistent or worse so we can re-evaluate you and ensure that you are not developing a problem that would require surgery or hospitalization. take ciprofloxacin and flagyl x 10 days - twice a day. take with food. may cause nausea, vomiting, diarrhea, pain and dizziness. stay hydrated bowel rest, start with clears and fluids, then advance as tolerated, diet given follow up with primary doctor, Dr Bach return if worsening symptoms as above. Regrese inmediatamente al servicio de urgencias si se siente peor de alguna manera o tiene alguno de los siguientes sntomas: dolor abdominal creciente o diferente, vmitos persistentes, fiebre o escalofros. Regrese al departamento de emergencias para dominique revisin en 8-12 horas si el dolor persiste o empeora para que podamos reevaluarlo y asegurarnos de que no est desarrollando un problema que requiera ciruga u hospitalizacin. tome ciprofloxacina y flagyl x 10 bright, dos veces al da. amee con la comida. puede causar nuseas, vmitos, diarrea, dolor y mareos. Mantente hidratado reposo intestinal, comience con concepcion y lquidos, luego avance segn lo tolere, se administre la dieta seguimiento con el mdico gutierres, Dr. Bach regrese si los sntomas empeoran mariah arriba. - Post Discharge Activity
--- OUTSIDE RECORDS SUMMARY | 2020-06-03 09:34 | XMS ---
:1975 Author Organization [facility] Name Relationship Address Phone UE Unavailable Unavailable Unavailable PHUC MUHAMMAD [address] [place] [address] ZACHARY MUHAMMAD Unavailable [address] [place] [address] Re-disclosure Warning The records that you are about to access may contain information from federally- assisted alcohol or drug abuse programs. If such information is present, then the following federally mandated warning applies: This information has been disclosed to you from records protected by federal confidentiality rules (42 CFR part 2). The federal rules prohibit you from making any further disclosure of this information unless further disclosure is expressly permitted by the written consent of the person to whom it pertains or as otherwise permitted by 42 CFR part 2. A general authorization for the release of medical or other information is NOT sufficient for this purpose. The Federal rules restrict any use of the information to criminally investigate or prosecute any alcohol or drug abuse patient.The records that you are about to access may contain highly sensitive health information, the redisclosure of which is protected by Article 27-F of the [facility] Public Health law. If you continue you may haveaccess to information: Regarding HIV / AIDS; Provided by facilities licensed or operated by the [facility] Office of Mental Health; or Provided by the [facility] Office for People With Developmental Disabilities. If such information is present, then the following [facility] mandated warning applies: This information has been disclosed to you from confidential records which are protected by state law. State law prohibits you from making any further disclosure of this information without the specific written consent of the person to whom it pertains, or as otherwise permitted by law. Any unauthorized further disclosure in violation of state law may result in a fine or [place] [facility] sentence or both. A general authorization for the release of medical or other information is NOT sufficient authorization for further disclosure. Encounters Encounter Providers Location Date Indications Data Source(s ) Outpatient [facility] 06/18/2019 eCW3 ([facility] 12:00:00 AM [facility] 06/18/2019 12:00:00 AM EDT () [facility] 05/27/2019 eCW3 ([facility] 12:00:00 AM [facility] EDT - Care) 05/27/2019 12:00:00 AM EDT () [facility] 04/29/2019 eCW3 ([facility] 12:00:00 AM [facility] EDT Care) 04/29/2019 12:00:00 AM EDT Outpatient [facility] 04/08/2019 eCW3 ([facility] 12:[facility]:00 [facility]) 04/08/2019 12:00:00 AM EDT Immunizations Vaccine Date Status Description Data Source(s) New in 2011. IIV4 05/27/2019 11:16:00 completed eC W3 ([facility]) New in 2011. IIV4 05/27/2019 11:16:00 completed eC W3 ([facility]) Insurance Providers Payer name Policy type Policy ID Covered Covered alliance party's Policy P candelaria / Coverage alliance party ID relationship to Corley Inf ormation type corley MVP ESSENTIAL [id number] SP [id number] PLAN 3 4 MVP ESSENTIAL [id number] SP [id number] PLAN 3 4 MEDICAID [id number] SP [id number] [facility] MEDICAID [id number] SP [id number] O MEDICAID [id number] SP [id number] SELF PAY SP INSURANCE BO [id number] SP [id number] 100 ESSENTIAL PLAN 1 2 Problems, Conditions, and Diagnoses Code Display Name Description Problem Type Effective Dates Data Source(s) Z51.89 Visit for wound Visit for wound Problem 04/29/2019 eCW3 ([facility] 12:00:00 AM EDT [facility]) Z39.2 Encounter for Encounter for Problem 04/29/2019 eCW3 ([facility] visit [facility] 12:00:00 AM [facility]) Social History Code Duration Value Status Description Data Source(s ) Smoking 05/27/2019 12:00:00 Never Smoker completed Never Smoker e CW3 ([facility]) Smoking 05/27/2019 12:00:00 Never Smoker completed Never Smoker e CW3 ([facility]) Smoking 05/27/2019 12:00:00 Never Smoker completed Never Smoker e CW3 ([facility]) Smoking 05/27/2019 12:00:00 Never Smoker completed Never Smoker e CW3 ([facility]) Smoking 05/27/2019 12:00:00 Never Smoker completed Never Smoker e CW3 ([facility]) Smoking 05/27/2019 12:00:00 Never Smoker completed Never Smoker e CW3 ([facility]) Smoking 05/27/2019 12:00:00 Never Smoker completed Never Smoker e CW3 ([facility]) Smoking 05/27/2019 12:00:00 Never Smoker completed Never Smoker e CW3 ([facility]) Smoking 05/27/2019 12:00:00 Never Smoker completed Never Smoker e CW3 ([facility]) Smoking 05/27/2019 12:00:00 Never Smoker completed Never Smoker e CW3 ([facility]) Smoking 05/27/2019 12:00:00 Never Smoker completed Never Smoker e CW3 ([facility]) Smoking 05/27/2019 12:00:00 Never Smoker completed Never Smoker e CW3 ([facility]) Smoking 05/27/2019 12:00:00 Never Smoker completed Never Smoker e CW3 ([facility]) Smoking 05/27/2019 12:00:00 Never Smoker completed Never Smoker e CW3 ([facility]) Vital Signs ID Date Data Source UNK Name Value Range Interpretation Code Description Data Source(s) Diastolic blood 65 mm[Hg] 65 mm[Hg] eCW3 ([facility]) Systolic blood 102 mm[Hg] 102 mm[Hg] eCW3 ([facility]) Body temperature 98.3 [degF] 98.3 [degF] eCW3 ( [facility]) Heart rate 18 /min 18 /min eCW3 ([facility]) Body mass index 24.95 kg/m2 24.95 kg/m2 eCW3 (Marko acuña (BMI) [Ratio] [facility]) Body weight 136.4 136.4 [lb_av] eCW3 ([facility] [lb_av] [facility]) Body height 62 [in_i] 62 [in_i] eCW3 ([facility]) Diastolic blood 61 mm[Hg] 61 mm[Hg] eCW3 ([facility]) Systolic blood 99 mm[Hg] 99 mm[Hg] eCW3 ([facility]) Body temperature 98.1 [degF] 98.1 [degF] eCW3 ( [facility]) Heart rate 20 /min 20 /min eCW3 ([facility]) Body mass index 25.24 kg/m2 25.24 kg/m2 eCW3 (Marko acuña (BMI) [Ratio] [facility]) Body weight 138 [lb_av] 138 [lb_av] eCW3 ([facility]) Body height 62 [in_i] 62 [in_i] eCW3 ([facility]) Diastolic blood 70 mm[Hg] 70 mm[Hg] eCW3 ([facility]) Systolic blood 113 mm[Hg] 113 mm[Hg] eCW3 ([facility]) Body temperature 98.3 [degF] 98.3 [degF] eCW3 ( [facility]) Heart rate 20 /min 20 /min eCW3 ([facility]) Body mass index 29.557 kg/m2 29.557 kg/m2 eCW3 ([facility] (BMI) [Ratio] [facility]) Body weight 161.6 161.6 [lb_av] eCW3 ([facility] on [lb_av] [facility]) Body height 62 [in_i] 62 [in_i] eCW3 ([facility])
--- NOTE | 2020-06-03 09:44 | PDOC ---
Attending Attestation - Resident Resident Name: Eugene Addison - ED Attending Attestation I have performed the following: I have examined & evaluated the patient, The case was reviewed & discussed with the resident, I agree w/resident's findings & plan - HPI HPI: 06/03/20 10:07 45F with PMH of and choleycystectomy presents to ED with abd pain that started 2 days ago, suddenly. The pain is intermittent, w/o provoking or alleviating factors. It's diffusely accross the abdomen, worst around the umbilicus, and some pain radiates to left back. Reports 3 bowel movements yesterday. She denies fever, nausea, vomiting, diarrhea, constipation, hematochezia, dysuria, abnormal vaginal bleeding or discharge. she went to see her PMD Dr Bach, who referred her to the ED due to concerns for diffuse AP and dark stools, possibly imaging 06/03/20 10:08 - Physicial Exam PE: 06/03/20 09:43 Agree with the resident's HPI and PE as documented in the electronic medical record. NAD, well appearing, EOMI, PERRL, nl conjunctiva, anicteric; neck supple. lungs clear, RRR, abdomen soft +diffuse tenderness throughout. no rebound, guarding. Back nontender. no CVAT. HERR x4, no focal neuro deficits. No peripheral edema. normal color for ethnicity, WWP. 06/03/20 12:49 - Medical Decision Making 06/03/20 10:07 Vital Signs Temp Pulse Resp BP Pulse Ox 99.3 F 82 16 137/86 100 06/03/20 09:23 06/03/20 09:23 06/03/20 09:23 06/03/20 09:23 06/03/20 09:23 DDx abdominal pain: Renal colic, biliary colic, metabolic/electrolyte deran gements. GERD, PUD, esophageal spasm, pancreatitis, hepatitis, constipation, colitis, gastroenteritis, cholecystitis, UTI, pyelonephritis, ileus, SBO, medication side effect, hernia, appendicitis, diverticulitis, mesenteric ischemia. msk strain, mesenteric adenitis, psoas abscess. vitals reviewed, no fever, nontoxic, nonperitoneal HD appropriate labs and lytes wnl, normal cr function. lipase normal, not pancreatitis. CT a/p: There is borderline thickening of the terminal ileum with adjacent mesenteric edema most likely early/mild terminal ileitis. She also has an incidental right adnexal cyst measuring 0.8 cm. Clinically doubt torsion. The patient appears comfortable and states that pain is improved. Given medications tylenol with clinical improvement. Tolerating oral intake. Vital signs reviewed and are normal. with CT results of terminal ileitis, supportive care and rest/hydration, bowel rest as well as ciprofloxacin and flagyl for abx coverage. clinically updated Dr Bach, pt's primary doctor The patient was advised that even though there is no evidence of a surgical emergency at this time, and that if there is additional pain they are to return for repeat evaluation. The patient stated understanding of this, has decision making capacity and is discharged in stable condition. The patient was instructed to return to the emergency department for re-evaluation in 8-12 hours and sooner if they feel worse in any way. GI follow up as well provided pt made aware of impression and plan, agreeable. 06/03/20 12:49 06/03/20 12:56 06/03/20 12:56 06/03/20 12:57 Discharge - Discharge Information Problems reviewed: Yes Clinical Impression/Diagnosis: Terminal ileitis Qualifiers: Digestive disease complication type: unspecified complication Qualified Code(s): K50.019 - Crohn's disease of small intestine with unspecified com plications Condition: Stable Disposition: HOME - Admission No - Additional Discharge Information Prescriptions: Ciprofloxacin [Cipro -] 500 mg PO Q12H #20 tablet metroNIDAZOLE [Flagyl -] 500 mg PO BID #20 tablet - Follow up/Referral Referrals: Mary Bach [Primary Care Provider] - Selena Montero MD [Staff Physician] - Vikas Villa MD [Staff Physician] - Eric Hammond DO [Staff Physician] - - Patient Discharge Instructions Patient Printed Discharge Instructions: DI for Ileitis Additional Instructions: Please return to the emergency department immediately should you feel worse in any way or have any of the following symptoms: increasing or different abdominal pain, persistent vomiting, fevers or shaking chills. Please return to the emergency department for a recheck in 8-12 hours if the pain is persistent or worse so we can re-evaluate you and ensure that you are not developing a problem that would require surgery or hospitalization. take ciprofloxacin and flagyl x 10 days - twice a day. take with food. may cause nausea, vomiting, diarrhea, pain and dizziness. stay hydrated bowel rest, start with clears and fluids, then advance as tolerated, diet given follow up with primary doctor, Dr Bach return if worsening symptoms as above. Regrese inmediatamente al servicio de urgencias si se siente peor de alguna manera o tiene alguno de los siguientes sntomas: dolor abdominal creciente o diferente, vmitos persistentes, fiebre o escalofros. Regrese al departamento de emergencias para dominique revisin en 8-12 horas si el dolor persiste o empeora para que podamos reevaluarlo y asegurarnos de que no est desarrollando un problema que requiera ciruga u hospitalizacin. tome ciprofloxacina y flagyl x 10 bright, dos veces al da. amee con la comida. puede causar nuseas, vmitos, diarrea, dolor y mareos. Mantente hidratado reposo intestinal, comience con concepcion y lquidos, luego avance segn lo tolere, se administre la dieta seguimiento con el mdico Dr. Isreal gutierres regrese si los sntomas empeoran mariah arriba. - Post Discharge Activity
[2020-06-03 09:48] VITALS: TEMP 99.3; BMI 22.6
[2020-06-03] MEDS ORDERED: ACETAMINOPHEN 500 MG TABLET (FP) PO ONE (10:18)
[2020-06-03] MEDS ORDERED: ACETAMINOPHEN 500 MG TABLET (FP) ONE (10:22)
[2020-06-03 11:14] LABS: BASO % 1.1 % (0-2.0); EOS % 1.9 % (0-4.5); HEMATOCRIT 39.2 % (32.4-45.2); HEMOGLOBIN 13.4 GM/dl (10.7-15.3); MCH 29.4 pg (25.7-33.7); MCHC 34.1 g/dl (32.0-36.0); MEAN CELL VOLUME 86.1 fl (80-96); MEAN PLT VOLUME 8.1 fl (7.5-11.1); MONO % 8.5 % (3.8-10.2); NEUT % 60.5 % (42.8-82.8); PLATELET COUNT 343 K/MM3 (134-434); RBC 4.55 M/mm3 (3.60-5.2); RDW 12.2 % (11.6-15.6); WHITE BLOOD COUNT 7.6 K/mm3 (4.0-10.8)
[2020-06-03 12:43] VITALS: BP 122/79; PULSE 81
[2020-06-03] MEDS ORDERED: CIPROFLOXACIN 500 MG TABLET (RESTRICTED TO ID) PO ONE (12:54)
[2020-06-03] MEDS ORDERED: metroNIDAZOLE 500 MG TABLET PO ONE (12:54)
[2020-06-03] MEDS ORDERED: metroNIDAZOLE 250 MG TABLET ONE (13:05)
[2020-06-03] MEDS ORDERED: CIPROFLOXACIN 250 MG TABLET (RESTRICTED TO ID) PO ONE (13:05)
[2020-06-03 13:21] LABS: ALBUMIN 4.2 g/dl (3.4-5.0); BILIRUBIN,TOTAL 0.6 mg/dl (0.2-1); CALCIUM 9.1 mg/dl (8.5-10); CREATININE 0.6 mg/dl (0.55-1.3); POTASSIUM 4.2 mmol/L (3.5-5.1); TOT PROT 7.7 g/dl (6.4-8.2)
== END 2020-06-03 13:14 | disposition home or self-care (01) ==
LOC: FER 09:21
DX: K50.019 Crohn's disease of small intestine with unspecified complications (principal)
CPT/HCPCS: 36415; 74177-TC; 80053; 82272; 83690; 85025; 99285-25; Q9967

== ENCOUNTER 2021-03-08 05:00 | Day surgery (SDC) | payer OTHER ==
[2021-01-25 12:22] VITALS: BMI 21.7
[2021-03-08 11:13] VITALS: TEMP 98
[2021-03-08 12:17] VITALS: BP 121/83; PULSE 77
== END 2021-03-08 12:24 | disposition home or self-care (01) ==
LOC: JASU-ENDO 05:00
PROVIDERS: ATTEND Internal Medicine Gastroenterology
PROC: 0DJD8ZZ Inspection of Lower Intestinal Tract, Via Natural or Artificial Opening Endoscopic (ICD-10-PCS; principal; 2021-03-08 09:15)
DX: K64.8 Other hemorrhoids (principal); R93.3 Abnormal findings on diagnostic imaging of other parts of digestive tract
CPT/HCPCS: 81025

== ENCOUNTER 2022-01-20 10:52 | Emergency (ER) | payer OTHER ==
[2022-01-20 10:59] VITALS: BP 123/50; PULSE 75; TEMP 98.8; BMI 22.0
[2022-01-20] MEDS ORDERED: FAMOTIDINE 20 MG/50 ML IVPB 20 MG/50 ML MG IVPB ONE (11:22)
[2022-01-20] MEDS ORDERED: MAG HYDROX/AL HYDROX/SIMETH 30 ML UNIT-DOSE CUP PO ONE (11:22)
[2022-01-20] MEDS ORDERED: ACETAMINOPHEN 1000 MG/100 ML BAG IVPB ONE (11:22)
[2022-01-20] MEDS ORDERED: FAMOTIDINE 20 MG TABLET PO ONE (11:25)
[2022-01-20] MEDS ORDERED: ACETAMINOPHEN 325 MG TABLET (FP) PO ONE (11:25)
[2022-01-20 11:27] LABS: EPITHELIAL CELLS MANY /hpf
[2022-01-20] MEDS ORDERED: ACETAMINOPHEN 325 MG TABLET (FP) ONE (11:34)
[2022-01-20] MEDS ORDERED: FAMOTIDINE 20 MG TABLET ONE (11:34)
[2022-01-20] MEDS ORDERED: MAG HYDROX/AL HYDROX/SIMETH 30 ML UNIT-DOSE CUP ONE (11:35)
[2022-01-20 12:03] LABS: HEMATOCRIT 33.5 % (32.4-45.2); HEMOGLOBIN 11.8 G/dL (10.7-15.3); MCH 28.4 pg (25.7-33.7); MCHC 35.2 g/dl (32.0-36.0); MEAN CELL VOLUME 80.8 fl (80-96); PLATELET COUNT 298.4 10^3/uL (134-434); RBC 4.15 10^6/uL (3.60-5.2); RDW 15.3 % (11.6-15.6); WHITE BLOOD COUNT 7.9 10^3/uL (4.0-10.8)
[2022-01-20 12:09] LABS: ALBUMIN 3.8 g/dl (3.4-5.0); BILIRUBIN,TOTAL 0.6 mg/dl (0.2-1); CALCIUM 9.3 mg/dl (8.5-10); CREATININE 0.5 mg/dl (0.55-1.3); TOT PROT 6.9 g/dl (6.4-8.2)
[2022-01-20] MEDS ORDERED: IBUPROFEN 600 MG TABLET (FP) PO ONE ×2 (12:23→12:24)
== END 2022-01-20 12:30 | disposition home or self-care (01) ==
LOC: FER 10:52 → SUPCPDRO 10:52 → FER 12:30
DX: R10.12 Left upper quadrant pain (principal)
CPT/HCPCS: 36415; 80053; 81003; 81015; 84703; 85025; 87086; 99283-25

== ENCOUNTER 2022-07-18 04:17 | Emergency (ER) | payer OTHER ==
[2022-07-18 04:29] VITALS: BMI 24.2
[2022-07-18] MEDS ORDERED: ACETAMINOPHEN 1000 MG/100 ML BAG IVPB ONE (04:52)
[2022-07-18] MEDS ORDERED: SODIUM CHLORIDE 0.9% 500 ML INFUS.BAG IV ONE (04:55)
[2022-07-18] MEDS ORDERED: ACETAMINOPHEN INJECTION 100 ML IVPB ONE (05:07)
[2022-07-18 05:57] LABS: BASO % 0.7 % (0-2.0); EOS % 2.5 % (0-4.5); HEMATOCRIT 37.4 % (32.4-45.2); HEMOGLOBIN 12.4 GM/dL (10.7-15.3); LYMPH % 31.8 % (8-40); MCH 27.1 pg (25.7-33.7); MCHC 33.2 g/dl (32.0-36.0); MEAN CELL VOLUME 81.5 fl (80-96); MEAN PLT VOLUME 7.9 fl (7.5-11.1); MONO % 7.4 % (3.8-10.2); NEUT % 57.6 % (42.8-82.8); PLATELET COUNT 335 10^3/uL (134-434); RBC 4.59 M/mm3 (3.60-5.2); RDW 14.3 % (11.6-15.6); WHITE BLOOD COUNT 6.8 K/mm3 (4.0-10.0)
[2022-07-18 06:01] LABS: URINE APPEARANCE CLEAR; URINE BILIRUBIN NEGATIVE (NEGATIVE); URINE COLOR YELLOW; URINE GLUCOSE (UA) NEGATIVE (NEGATIVE); URINE KETONE NEGATIVE (NEGATIVE); URINE LEUK ESTERASE 1+ (NEGATIVE); URINE NITRITE NEGATIVE (NEGATIVE); URINE PROTEIN NEGATIVE (NEGATIVE); URINE UROBILINOGEN 0.2 mg/dL (0.2-1.0)
[2022-07-18 06:14] LABS: CHLORIDE 108 mmol/L (98-107); SODIUM 137 mmol/L (136-145)
[2022-07-18 06:16] LABS: CALCIUM 8.7 mg/dL (8.5-10.1)
[2022-07-18 06:17] LABS: ALBUMIN 3.5 g/dl (3.4-5.0); BLOOD UREA NITROGEN 12.9 mg/dL (7-18); CO2 25 mmol/L (21-32); GLUCOSE,RANDOM 88 mg/dL (74-106)
[2022-07-18 06:20] LABS: CREATININE 0.7 mg/dL (0.55-1.3); SGOT/AST 80 U/L (15-37)
[2022-07-18 06:23] LABS: ALK PHOS 78 U/L (45-117); BILIRUBIN,TOTAL 0.4 mg/dL (0.2-1); TOT PROT 7.4 g/dl (6.4-8.2)
[2022-07-18 06:25] LABS: ANION GAP 3 MMOL/L (8-16); SGPT/ALT 30 U/L (13-61)
[2022-07-18] MEDS ORDERED: FAMOTIDINE 20 MG/50 ML IVPB 20 MG/50 ML MG IVPB ONE ×2 (06:49→08:07)
[2022-07-18] MEDS ORDERED: KETOROLAC TROMETHAMINE 15 MG/ML VIAL IVPUSH ONE (06:49)
[2022-07-18 07:02] VITALS: BP 115/67; PULSE 50; RESP 20; TEMP 97.6
[2022-07-18] MEDS ORDERED: KETOROLAC TROMETHAMINE 15 MG/ML VIAL ONE (08:06)
== END 2022-07-18 09:41 | disposition home or self-care (01) ==
LOC: JER 04:17
PROC: 3E0333Z Introduction of Anti-inflammatory into Peripheral Vein, Percutaneous Approach (ICD-10-PCS; principal; 2022-07-18)
PROC: 3E033GC Introduction of Other Therapeutic Substance into Peripheral Vein, Percutaneous Approach (ICD-10-PCS; 2022-07-18)
PROC: 3E0333Z Introduction of Anti-inflammatory into Peripheral Vein, Percutaneous Approach (ICD-10-PCS; 2022-07-18)
DX: R10.9 Unspecified abdominal pain (principal)
CPT/HCPCS: 36415; 74176-TC; 80053; 81003; 84132; 84703; 85025; 87086; 99284-25